=== PATIENT | female | born 1990 | race Two or more races ===

== ENCOUNTER → 2024-07-15 | Outpatient (CLI) | payer MEDICAID, SELFPAY ==
--- NOTE | 2024-07-15 12:37 | XR_ITS ---
Examination: OB Transvaginal ultrasound of the pelvis, complete Technique: Transvaginal sonographic images pelvis performed using amin scale imaging Exam date and time: July 07, 2024 at 1328 hrs. Indications: Irregular menses, early by history, unknown size and dates. Findings: Uterus 9.7 cm pole 1.8 cm corresponds to 8 weeks 2 days gestational age Cardiac motion 173 BPM Right ovary 3.8 cm arterial flow 21 x 22 mm cyst Left ovary 2.2 cm arterial flow Impression: Viable intrauterine gestation 8 weeks 2 days
== END | disposition home or self-care (01) ==
PROVIDERS: PCP Nurse Practitioner Family; Referring Provider Obstetrics & Gynecology; Visit Provider Obstetrics & Gynecology
DX: O09.91 Supervision of high risk pregnancy, unspecified, first trimester (principal); Z3A.08 8 weeks gestation of pregnancy
CPT/HCPCS: 76817

== ENCOUNTER 2024-12-14 17:44 | Emergency (ER) | payer MEDICAID, SELFPAY ==
[2024-12-14 17:45] VITALS: BMI 28.2
--- NOTE | 2024-12-14 17:59 | PC.NURSE ---
TRIAGED PT, RME PCP SAID PT SHOULD GO TO OB INSTEAD OF ER. CALLED REPORT TO OB AND THEY SAID TO BRING HER UP.
== END 2024-12-14 18:01 | disposition admitted as inpatient to this hospital (09) ==
LOC: SERX 18:56
PROVIDERS: Emergency Provider Emergency Medicine
DX: Z53.21 Procedure and treatment not carried out due to patient leaving prior to being seen by health care provider (principal)
CPT/HCPCS: 99282

== ENCOUNTER 2024-12-14 18:17 | Observation (INO) | payer MEDICAID, SELFPAY ==
[2024-12-14] VITALS (31 sets, daily range): BP systolic 117–127; BP diastolic 71–86; PULSE 69–121; RESP 18–99; TEMP 36.5–36.6; O2SAT 97–99; BMI 28.1
--- NOTE | 2024-12-14 18:40 | XR_ITS ---
Examination: Complete OB ultrasound greater than 14 weeks Date and time of exam: December 14, 2024 1908 hours INDICATIONS: labor contractions today Findings: Viable intrauterine single fetus with single amniotic sac presentation cephalic Cardiac motion 143 BPM Placenta posterior grade 2 Umbilical cord insertion seen Amniotic fluid index 9.7 cm spine maternal left Cervix 4.7 cm Ovaries obscured by bowel gas. Composite estimated gestational age based on BPD, head circumference, abdominal circumference, femur length is 31 weeks 1 day Estimated weight 1643 g. Survey of intracranial anatomy, spinal anatomy, abdominal anatomy, four-chamber heart performed with no abnormalities identified. Impression: Viable intrauterine gestation cephalic presentation.
[2024-12-14 19:11] LABS: Collection Type, Urine Clean Catch; RBC,Urine 0 /hpf (0-3)
[2024-12-14] MEDS: BETAMET ACET/BETAMET NA PH (Celestone) 6 MG/ML VIAL 12 MG IM (19:12)
[2024-12-14] MEDS: RINGERS LACTATED 1000 ML 1,000 ML 999 ML IV (19:15)
[2024-12-14 19:23] LABS: Bilirubin,Urine Negative (Negative); Blood,Urine Negative (Negative); Clarity,Urine Clear (Clear/Hazy); Color,Urine Colorless (Lt Yel-Yel); Glucose, Urine Negative (Negative); Ketones,Urine Negative (Negative); Leukocyte Esterase,Urine Negative (Negative); Nitrite,Urine Negative (Negative); PH,Urine 7.0 (5.0-7.0); Protein,Urine Negative (Neg - Trace); Specific Gravity,Urine 1.005 (1.001-1.035); Squamous Epithelial Cell,Urine 2 /hpf (0-5); Urobilinogen,Urine Negative mg/dL (0.0-1.0); WBC,Urine 1 /hpf (0-5)
[2024-12-14 19:34] LABS: Basophils # (Auto) 0.0 Thou/mm3 (0.0-0.2); Basophils % (Auto) 0 % (0-2.5); Eosinophils # (Auto) 0.1 Thou/mm3 (0.0-0.5); Eosinophils % (Auto) 1 % (0-10); Hematocrit 33.0 % (36.0-46.0); Hemoglobin 11.0 g/dL (12.0-16.0); Immature Granulocytes Auto 0.11 Thou/mm3 (0.00-0.00); Lymphocytes # (Auto) 1.6 Thou/mm3 (1.0-4.8); Lymphocytes % (Auto) 17 % (10-50); Mean Corpuscular HGB Conc 33.3 g/dl (31.0-37.0); Mean Corpuscular Hemoglobin 28.1 pg (25.0-35.0); Mean Corpuscular Volume 84 fL (80-100); Monocytes # (Auto) 0.9 Thou/mm3 (0.0-0.8); Monocytes % (Auto) 9 % (0-12); Neutrophils # (Auto) 6.9 Thou/mm3 (1.8-7.7); Neutrophils % (Auto) 72 % (37-80); Nucleated Red Blood Cell # 0.00 Thou/mm3 (0.00-0.00); Nucleated Red Blood Cell % 0 /100 WBC (0); Platelet Count 229 Thou/mm3 (140-440); RDW Standard Deviation 40.9 fL (36.4-46.3); Red Blood Count 3.91 Miln/mm3 (4.00-5.20); White Blood Count 9.7 Thou/mm3 (3.6-11.0)
[2024-12-14 19:45] LABS: Alanine Aminotransferase 8 U/L (10-49); Albumin, Serum 4.0 gm/dL (3.5-5.0); Albumin/Globulin Ratio 1.8 (1.2-2.2); Alkaline Phosphatase 101 U/L (46-116); Anion Gap 10 (7-16); Aspartate Amino Transferase 16 U/L (0-34); BUN/Creatinine Ratio 10 Ratio (12-20); Bilirubin,Total 0.3 mg/dL (0.3-1.2); Blood Urea Nitrogen < 5 mg/dL (9-23); Calcium 9.2 mg/dL (8.3-10.6); Calcium (Corrected) 9.2 mg/dL (8.5-10.1); Carbon Dioxide 20.7 mMol/L (20.0-31.0); Chloride 109 mMol/L (98-107); Creatinine (Component) 0.5 mg/dL (0.6-1.3); Estimated Creatinine Clearance 150.8 mL/min (>60); Globulin 2.2 gm/dL (2.3-3.5); Glucose 92 mg/dL (74-106); Osmolality,Calculated 276 (275-295); Potassium 3.4 mMol/L (3.4-5.1); Sodium 140 mMol/L (136-145); Total Protein 6.2 gm/dL (5.7-8.2); eGFR > 60 See Note
[2024-12-14 19:54] LABS: FFN Specimen Descripton Clr Colrless Aqueous; Fetal Fibronectin Negative (Negative)
[2024-12-14] MEDS: RINGERS LACTATED 1000 ML 1,000 ML 100 ML IV (20:15)
[2024-12-14] MEDS: TERBUTALINE SULF INJ 1 MG/ML VIAL 0.25 MG SC (21:20)
--- NOTE | 2024-12-14 21:52 | PD.ADDPROG ---
Addendum Progress Note Addendum Date of report being addended: 12/14/24 Narrative: The patient is a 34-year-old -0-0-[address] Banks in the clinic. She has a history of x 2. She states her children are age 12 and 9. She presented to triage reporting abdominal pain and is 30 weeks . She was found to be gavin regularly. fibronectin was negative. Urinalysis was negative. The cervix was closed. An ultrasound was ordered and is normal. Patient was given a liter of IV fluids and her contractions spaced. She has been having some cough and is wearing a mask but she states she is also had some diarrhea. No fevers or chills. No loss of fluids or vaginal bleeding. She was reporting some burning on urination but her urinalysis is negative. Patient was given terbutaline and her contractions spaced. The plan will be to give her a second dose of terbutaline. Patient can come back tomorrow for reevaluation. She was given a dose of betamethasone today and the plan will be to repeat at 24 hours.
== END 2024-12-14 23:09 | disposition home or self-care (01) ==
PROVIDERS: Admitting Provider Obstetrics & Gynecology; Visit Provider Obstetrics & Gynecology
DX: O47.03 False labor before 37 completed weeks of gestation, third trimester (principal); O26.893 Other specified pregnancy related conditions, third trimester; R10.9 Unspecified abdominal pain; R30.9 Painful micturition, unspecified; Z3A.30 30 weeks gestation of pregnancy
CPT/HCPCS: 36415; 59899; 76805; 80053; 81001; 82731; 85025; 86850; 86870; 86900; 86901; 87086; 96372; J0702; J3105; J7120

== ENCOUNTER 2024-12-15 18:45 | Outpatient (CLI) | payer MEDICAID, SELFPAY ==
[2024-12-15 18:49] VITALS: BP 118/67; PULSE 70; RESP 20; RESP 98; TEMP 36.5; O2SAT 98; BMI 28.7
[2024-12-15 18:55] VITALS: PULSE 76; O2SAT 98
[2024-12-15 19:00] VITALS: PULSE 75; O2SAT 98
[2024-12-15 19:05] VITALS: PULSE 76; O2SAT 98
[2024-12-15 19:10] VITALS: PULSE 72; O2SAT 99
[2024-12-15 19:15] VITALS: PULSE 72; O2SAT 97
[2024-12-15] MEDS: BETAMET ACET/BETAMET NA PH (Celestone) 6 MG/ML VIAL 12 MG IM (19:42)
== END 2024-12-15 19:50 | disposition home or self-care (01) ==
LOC: S4SX 18:54 → S4S1 19:18 → S4SX 19:18
PROVIDERS: Referring Provider Specialist; Visit Provider Specialist
DX: Z34.90 Encounter for supervision of normal pregnancy, unspecified, unspecified trimester (principal); Z36.9 Encounter for antenatal screening, unspecified; Z3A.00 Weeks of gestation of pregnancy not specified
CPT/HCPCS: 59025; 96372; J0702

== ENCOUNTER 2024-12-16 09:52 | Outpatient (AMB) | payer MEDICAID, SELFPAY ==
--- NOTE | 2024-12-16 10:22 | OBCLNT_ITS ---
Vital Signs 12/16/24 10:23 Height 1.57 m Height Method Stated Weight 73.028 kg Weight Measurement Method Standing Scale BMI 29.4 BP 114/71 Blood Pressure Source Automatic Cuff Blood Pressure Location Right Upper Arm Position Sitting Respiration 17 Pulse 78 Pulse Source Monitor Temp 97.8 F Temp Source Temporal Artery Scan Pulse Oximetry (%) 98 Oxygen Delivery Method Room Air Allergies/Home Meds Allergies & Medications Allergies No Known Allergies Allergy (Verified 12/16/24 10:24) Medication Reconciliation vitamin no.45-iron-FA 28 mg iron-1 mg chewable tablet 1 tab PO QDAY 12/15/24 [History Confirmed 12/16/24] Intake Visit Data Collection New Patient or Established: New Patient (never been to [facility]) Reason for Visit:: OB TRANSFER Seen by Clinical Staff ONLY (RN/MA): No Band Manager Required: No Do You Feel Safe at Home: Yes Authorities Contacted: N/A PCP or OBGYN visit in last 3 months: No Hx Now: Yes Are you currently on any form of Control: No Last menstrual period: 05/06/24 Pain Present Currently: No Pain Scale Used: Florentino-Shanks/Numerical Pain scale:: 0 Smoking Status Smoking Status: Never smoker Questionnaires Covid-19 Vaccine Questionnaire Has patient been vacinated for Covid-19 Have you been vacinated for Covid-19: No PHQ-9 PHQ-2 Over the last 2 weeks, how often have you been bothered by any of the following problems? 1. Little interest or pleasure in doing things: not at all 2. Feeling down, depressed, or hopeless: not at all Total score: 0 PHQ-9 3. Trouble falling or staying asleep, or sleeping too much: Not at all 4. Feeling tired or having little energy: Not at all 5. Poor appetite or overeating: Not at all 6. Feeling bad about yourself - or that you are a failure or have let yourself or your family down: Not at all 7. Trouble concentrating on things, such as reading the newspaper or watching television: Not at all 8. Moving or speaking so slowly that other people could have noticed? - Or the opposite - being so fidgety or restless that you have been moving around a lot more than usual: not at all 9. Thoughts that you would be better off or of hurting yourself in some way: Not at all Total score: 0 If you checked off any problems, how difficult have these problems made it for you to do your work, take care of things at home, or get along with other people?: not difficult at all Source: Developed by Drs. Sai Quezada, Sara Aguirre, Jem Beltran and colleagues, with an educational lenard from [employer]. Depression screen completed yes Social History Living Situation History Marital Status: Lives With: Family Housing: House Tobacco History Smoking Status: Never smoker Second Hand Smoke Exposure: No Alcohol History Alcohol Intake: Never Domestic Abuse History Do You Feel Safe at Home: Yes History of Present Illness HPI Narrative - Elaine Rowe is presenting for Transfer of Care from [facility], with a history of 2 previous sections and an estimated due date of February 22, 2025. - Patient is currently 30 weeks and 2 days based on a 0-wyesa-zvl-6-days ultrasound performed on 07-12-2019. 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 History of two previous sections. Patient experienced contractions for 2 days, prompting a hospital visit where cervix was found closed and movement was normal. corticosteroids were administered for lung maturation. - Schedule for February 15, 2025 (39 weeks gestation) - Administer Tdap vaccine at next appoin tment - Perform routine labs including anemia check and thyroid function test - Follow up in 2 weeks - Confirm and communicate date at next appointment Menstrual History Menstrual reliability: definite Flow: normal Menstrual regularity: regular Monthly: Yes Age at menarche: 12 On control pills at conception: No OB History : 3 Para: 2 # of Living Children: 2 Delivery History 1st : Child's name: SHELBY ROWE date: 02/26/12 sex: female Delivery type: weight (lbs): 2721.554 g History of depression before or after : No 2nd : Child's name: RACHEL STOVALL date: 08/14/15 sex: female Delivery type: weight (lbs): 2721.554 g History of depression before or after : No Infection History & Risk Evaluation History of STDs: none HIV risk evaluation: low risk Hepatitis B risk evaluation: low risk Patient or partner has history of Genital Herpes: No Varicella/chicken pox status: unknown Genetic Screening & History Genetic Screening/Teratology Counseling - Includes patient, baby's father, or anyone in either family with: 1. Patient's age 35 years or older as of estimated date of delivery: No 2. Thalassemia (Vietnamese, English, Mediterranean, or Background); MCV less than 80: No 3. Neural Tube Defect (Meningomyelocele, Spina Bifida, or Anencephaly): No 4. Congenital Heart Defect: No 5. Down Syndrome: No 6. Keo-Sachs (Ashkenazi Orthodox, Cajun, Portuguese Tanzanian): No 7. Annette Disease (Ashkenazi Orthodox): No 8. Familial Dysautonomia (Ashkenazi Orthodox): No 9. Sickle Cell Disease or Trait (): No 10. Hemophilia or other blood disorders: No 11. Muscular Dystrophy: No 12. Cystic Fibrosis: No 13. [place]'s Chorea: No 14. Mental Retardation/Autism: No 15. Other inherited genetic or chromosomal disorder: No 16. Maternal Metabolic Disorder (EG,TYPE 1 Diabetes, PKU): No 17. Patient or baby's father had a child with defects not listed above: No 18. Recurrent loss or a stillbirth: No 19. Medications (including supplements, vitamins, herbs or otc drugs)/illicit/recreational drugs/alcohol since last menstrual period: No 20. Any other: No Infection History 1. Live with someone with TB or exposed to TB: No 2. Rash or viral illness since last menstrual period: No 3. Hepatitis B,C: No Other (see comments) Source: [employer] Office Procedures OB Clinic LOC & Office Proc's Nursing/Assessment Patient Status: Established Patient OB Clinic Nursing Assessment: Medication Reconciliation, Update PMH in EMR and Vital Signs OB Clinic Coordination of Care: Complex Care and Chronic Disease 1-5, Consent,records obtained, informed consent, Education Simp Pt/Fam, Results/Orders obtained and Staff clarify orders Special Needs: Heart tones Established Patient Charge Established Patient Point Assignment: 120 Established Patient Point Charge: EP Level 4 (120-155) Assessment & Plan Diagnosis / Problem List (1) Maternal care for low transverse scar from previous delivery: Status: Acute (2) Supervision of high risk , unspecified, third trimester: Status: Acute
[2024-12-16 10:23] VITALS: BP 114/71; PULSE 78; RESP 17; TEMP 36.6; O2SAT 98; BMI 29.4
== END 2024-12-16 10:44 | disposition home or self-care (01) ==
LOC: HODSOBC 09:52
PROVIDERS: Supervising Provider Obstetrics & Gynecology; Visit Provider Obstetrics & Gynecology
DX: O09.293 Supervision of pregnancy with other poor reproductive or obstetric history, third trimester (principal); O34.211 Maternal care for low transverse scar from previous cesarean delivery; Z3A.30 30 weeks gestation of pregnancy
CPT/HCPCS: 99214; G0463

== ENCOUNTER 2024-12-28 11:28 | Outpatient (AMB) | payer MEDICAID, SELFPAY ==
[2024-12-28 11:53] VITALS: BP 115/75; PULSE 85; RESP 16; TEMP 36.5; O2SAT 98; BMI 29.8
--- NOTE | 2024-12-28 11:53 | OBCLNT_ITS ---
Vital Signs 12/28/24 11:53 Height 1.57 m Height Method Stated Weight 73.595 kg Weight Measurement Method Standing Scale BMI 29.8 BP 115/75 Blood Pressure Source Automatic Cuff Blood Pressure Location Left Upper Arm Position Sitting Respiration 16 Pulse 85 Pulse Source Monitor Temp 97.7 F Temp Source Oral Pulse Oximetry (%) 98 Oxygen Delivery Method Room Air Allergies/Home Meds Allergies & Medications Allergies No Known Allergies Allergy (Verified 01/12/25 13:59) Medication Reconciliation vitamins no.45-iron-FA 28 mg iron-1 mg chewable tablet 1 tab PO QDAY 12/15/24 [History Confirmed 01/12/25] omeprazole 40 mg capsule,delayed release 40 mg PO QDAY 30 days #30 caps 12/28/24 [Rx Confirmed 01/12/25] Intake Visit Data Collection New Patient or Established: Established Patient (seen at [facility] within 3 years) Reason for Visit:: CARE Seen by Clinical Staff ONLY (RN/MA): No Physician President Required: No Do You Feel Safe at Home: Yes Authorities Contacted: N/A PCP or OBGYN visit in last 3 months: Yes Hx Now: Yes Are you currently on any form of Control: No Pain Present Currently: No Pain Scale Used: Florentino-Shanks/Numerical Pain scale:: 0 Smoking Status Smoking Status: Never smoker Questionnaires Covid-19 Vaccine Questionnaire Has patient been vacinated for Covid-19 Have you been vacinated for Covid-19: Yes PHQ-9 PHQ-2 Over the last 2 weeks, how often have you been bothered by any of the following problems? 1. Little interest or pleasure in doing things: not at all 2. Feeling down, depressed, or hopeless: not at all Total score: 0 PHQ-9 3. Trouble falling or staying asleep, or sleeping too much: Not at all 4. Feeling tired or having little energy: Not at all 5. Poor appetite or overeating: Not at all 6. Feeling bad about yourself - or that you are a failure or have let yourself or your family down: Not at all 7. Trouble concentrating on things, such as reading the newspaper or watching television: Not at all 8. Moving or speaking so slowly that other people could have noticed? - Or the opposite - being so fidgety or restless that you have been moving around a lot more than usual: not at all 9. Thoughts that you would be better off or of hurting yourself in some way: Not at all Total score: 0 Source: Developed by Drs. Sai Quezada, Sara Aguirre, Jem Beltran and colleagues, with an educational lenard from [employer] 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 History of two previous sections. Patient experienced contractions for 2 days, prompting a hospital visit where cervix was found closed and movement was normal. corticosteroids were administered for lung maturation. - Schedule for February 15, 2025 (39 weeks gestation) - Administer Tdap vaccine at next appoin tment - Perform routine labs including anemia check and thyroid function test - Follow up in 2 weeks - Confirm and communicate date at next appointment 12/28/24 -?-?-?-?-?-?-?-?-?-?-?-?- 32w 0d 73.595 kg 115/75 occasional cephalic 33 155 active - Elaine Barragan is a woman presenting for a visit at 32 weeks' gestation. - She is scheduled for a repeat C-sectio n on February 15. - Patient denies contractions or loss of fluids. - Scheduled for repeat C- section on 02/15 - Order placed for 01/12/25 -?-?-?-?-?-?-?-?-?-?-?-?- 34w 1d 75.863 kg 119/72 occasional cephalic 35 135 active at 34w1d with hx of prior C/S, scheduled for repeat on 02/15, reports intermittent ctx and recent diarrhea after drinking watermelon water; FHR 135, BP WNL. Plan: Hydrate we ll, avoid GI triggers, return in 2w for GBS swab at 36w, continue C/S plan, go to L&D for increased ctx, ROM, or bleeding. MINE Calculator Estimated Delivery Date Method Current WG Current Estimate 02/22/25 Ultrasound #1 35w 6d Other Estimates 02/22/25 LMP (Uncertain) 35w 6d Notes Visit Date: 12/28/24 Last Updated by: Gabe Banks MD - Hemoglobin: 10.8 g/dL - Hemoglobin A1c: 5.6% - TSH: Normal - RPA: Normal Visit Date: 12/16/24 Last Updated by: Gabe Banks MD - , third trimester - History of section - Recent labor Office Procedures OB Clinic LOC & Office Proc's Nursing/Assessment Patient Status: Established Patient OB Clinic Nursing Assessment: Medication Reconciliation, Update PMH in EMR and Vital Signs OB Clinic Coordination of Care: Complex Care and Chronic Disease 1-5, Consent,records obtained, informed consent, Education Simp Pt/Fam, 1 Ins Authorization, Lab and Imaging orders, Results/Orders obtained and Staff clarify orders Special Needs: Heart tones Established Patient Charge Established Patient Point Assignment: 150 Established Patient Point Charge: EP Level 4 (120-155) Assessment & Plan Diagnosis / Problem List (1) Supervision of high risk , unspecified, third trimester: Status: Acute (2) Maternal care for low transverse scar from previous delivery: Status: Acute
== END 2024-12-28 12:05 | disposition home or self-care (01) ==
LOC: HODSOBC 11:28
PROVIDERS: Supervising Provider Obstetrics & Gynecology; Visit Provider Obstetrics & Gynecology
DX: O09.293 Supervision of pregnancy with other poor reproductive or obstetric history, third trimester (principal); O34.211 Maternal care for low transverse scar from previous cesarean delivery; O09.213 Supervision of pregnancy with history of pre-term labor, third trimester; Z3A.32 32 weeks gestation of pregnancy
CPT/HCPCS: 99214; G0463

== ENCOUNTER 2025-01-12 13:52 | Outpatient (AMB) | payer MEDICAID, SELFPAY ==
--- NOTE | 2025-01-12 13:53 | OBCLNT_ITS ---
Vital Signs 01/12/25 13:54 Height 1.57 m Height Method Stated Weight 75.863 kg Weight Measurement Method Standing Scale BMI 30.7 BP 119/72 Blood Pressure Source Automatic Cuff Blood Pressure Location Left Upper Arm Position Sitting Respiration 16 Pulse 76 Pulse Source Monitor Temp 97.8 F Temp Source Oral Pulse Oximetry (%) 98 Oxygen Delivery Method Room Air Allergies/Home Meds Allergies & Medications Allergies No Known Allergies Allergy (Verified 01/12/25 13:59) Medication Reconciliation vitamins no.45-iron-FA 28 mg iron-1 mg chewable tablet 1 tab PO QDAY 12/15/24 [History Confirmed 01/12/25] omeprazole 40 mg capsule,delayed release 40 mg PO QDAY 30 days #30 caps 12/28/24 [Rx Confirmed 01/12/25] Intake Visit Data Collection New Patient or Established: Established Patient (seen at [facility] within 3 years) Reason for Visit:: CARE Seen by Clinical Staff ONLY (RN/MA): No Nurse Quality Required: No Do You Feel Safe at Home: Yes Authorities Contacted: N/A PCP or OBGYN visit in last 3 months: Yes Hx Now: Yes Are you currently on any form of Control: No Pain Present Currently: No Pain Scale Used: Florentino-Shanks/Numerical Pain scale:: 0 Smoking Status Smoking Status: Never smoker Questionnaires Covid-19 Vaccine Questionnaire Has patient been vacinated for Covid-19 Have you been vacinated for Covid-19: Yes PHQ-9 PHQ-2 Over the last 2 weeks, how often have you been bothered by any of the following problems? 1. Little interest or pleasure in doing things: not at all 2. Feeling down, depressed, or hopeless: not at all Total score: 0 PHQ-9 3. Trouble falling or staying asleep, or sleeping too much: Not at all 4. Feeling tired or having little energy: Not at all 5. Poor appetite or overeating: Not at all 6. Feeling bad about yourself - or that you are a failure or have let yourself or your family down: Not at all 7. Trouble concentrating on things, such as reading the newspaper or watching television: Not at all 8. Moving or speaking so slowly that other people could have noticed? - Or the opposite - being so fidgety or restless that you have been moving around a lot more than usual: not at all 9. Thoughts that you would be better off or of hurting yourself in some way: Not at all Total score: 0 Source: Developed by Drs. Sai Quezada, Sara Aguirre, Jem Beltran and colleagues, with an educational lenard from [employer]. 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 History of two previous sections. Patient experienced contractions for 2 days, prompting a hospital visit where cervix was found closed and movement was normal. corticosteroids were administered for lung maturation. - Schedule for February 15, 2025 (39 weeks gestation) - Administer Tdap vaccine at next appoin tment - Perform routine labs including anemia check and thyroid function test - Follow up in 2 weeks - Confirm and communicate date at next appointment 01/12/25 -?-?-?-?-?-?-?-?-?-?-?-?- 34w 1d 75.863 kg 119/72 occasional cephalic 35 135 active at 34w1d with hx of prior C/S, scheduled for repeat on 02/15, reports intermittent ctx and recent diarrhea after drinking watermelon water; FHR 135, BP WNL. Plan: Hydrate we ll, avoid GI triggers, return in 2w for GBS swab at 36w, continue C/S plan, go to L&D for increased ctx, ROM, or bleeding. MINE Calculator Estimated Delivery Date Method Current WG Current Estimate 02/22/25 Ultrasound #1 34w 1d Other Estimates 02/22/25 LMP (Uncertain) 34w 1d Notes Visit Date: 12/16/24 Last Updated by: Gabe Banks MD - , third trimester - History of section - Recent labor Office Procedures OB Clinic LOC & Office Proc's Nursing/Assessment Patient Status: Established Patient OB Clinic Nursing Assessment: Medication Reconciliation, Update PMH in EMR and Vital Signs OB Clinic Coordination of Care: Complex Care and Chronic Disease 1-5, Consent,records obtained, informed consent, Education Simp Pt/Fam, 1 Ins Authorization, Lab and Imaging orders, Results/Orders obtained and Staff clarify orders Special Needs: Heart tones Established Patient Charge Established Patient Point Assignment: 150 Established Patient Point Charge: EP Level 4 (120-155) Assessment & Plan Diagnosis / Problem List (1) Supervision of high risk , unspecified, third trimester: Status: Acute (2) Maternal care for low transverse scar from previous delivery: Status: Acute
[2025-01-12 13:54] VITALS: BP 119/72; PULSE 76; RESP 16; TEMP 36.6; O2SAT 98; BMI 30.7
== END 2025-01-12 14:24 | disposition home or self-care (01) ==
LOC: HODSOBC 13:52
PROVIDERS: Supervising Provider Obstetrics & Gynecology; Visit Provider Obstetrics & Gynecology
DX: O09.293 Supervision of pregnancy with other poor reproductive or obstetric history, third trimester (principal); O34.211 Maternal care for low transverse scar from previous cesarean delivery; O09.213 Supervision of pregnancy with history of pre-term labor, third trimester; Z3A.34 34 weeks gestation of pregnancy
CPT/HCPCS: 99214; G0463

== ENCOUNTER 2025-01-27 11:11 | Outpatient (AMB) | payer MEDICAID, SELFPAY ==
[2025-01-27 11:28] VITALS: BP 111/72; PULSE 76; RESP 16; TEMP 36.2; O2SAT 98; BMI 32.2
--- NOTE | 2025-01-27 11:28 | OBCLNT_ITS ---
Vital Signs 01/27/25 11:28 Height 1.57 m Height Method Stated Weight 79.435 kg Weight Measurement Method Standing Scale BMI 32.2 BP 111/72 Blood Pressure Source Automatic Cuff Blood Pressure Location Left Upper Arm Position Sitting Respiration 16 Pulse 76 Pulse Source Monitor Temp 97.2 F Temp Source Oral Pulse Oximetry (%) 98 Oxygen Delivery Method Room Air Allergies/Home Meds Allergies & Medications Allergies No Known Allergies Allergy (Verified 03/02/25 14:02) Medication Reconciliation vitamins no.45-iron-FA 28 mg iron-1 mg chewable tablet 1 tab PO QDAY 12/15/24 [History Confirmed 03/02/25] omeprazole 40 mg capsule,delayed release 40 mg PO QDAY 30 days #30 caps 12/28/24 [Rx Confirmed 03/02/25] acetaminophen 325 mg tablet 650 mg (2 x 325 mg) PO Q6HR PRN Patient rated pain of 3 #30 tabs 02/18/25 [Rx Confirmed 03/02/25] docusate sodium 100 mg capsule 100 mg PO QDAY #60 caps 02/18/25 [Rx Confirmed 03/02/25] furosemide 40 mg tablet 40 mg PO BID #6 tabs 02/18/25 [Rx Confirmed 03/02/25] hydrocodone 5 mg-acetaminophen 325 mg tablet 2 tab PO Q6HR PRN Patient rated pain 9 to 10 #20 tabs 02/18/25 [Rx Confirmed 03/02/25] ibuprofen 400 mg tablet 800 mg (2 x 400 mg) PO Q8HR PRN Pain Scale 4-6 (Moderate #6 tabs 02/18/25 [Rx Confirmed 03/02/25] labetalol 100 mg tablet 200 mg (2 x 100 mg) PO Q8HR #60 tabs 02/18/25 [Rx Confirmed 03/02/25] clindamycin HCl 300 mg capsule (Cleocin HCl) 300 mg PO TID 7 days #21 caps 03/02/25 [Rx] clindamycin phosphate 1 % topical gel 1 applic topical QHS 7 days #60 grams 03/02/25 [Rx] Intake Visit Data Collection New Patient or Established: Established Patient (seen at [facility] within 3 years) Reason for Visit:: OBC Seen by Clinical Staff ONLY (RN/MA): No Anesthesiology Technologist Required: No Do You Feel Safe at Home: Yes Authorities Contacted: N/A PCP or OBGYN visit in last 3 months: Yes Date of Last PCP or OBGYN visit: 01/12/25 Hx Now: Yes Pain Present Currently: No Pain Scale Used: Florentino-Shanks/Numerical Pain scale:: 0 Smoking Status Smoking Status: Never smoker Questionnaires Covid-19 Vaccine Questionnaire Has patient been vacinated for Covid-19 Have you been vacinated for Covid-19: Yes PHQ-9 PHQ-2 Over the last 2 weeks, how often have you been bothered by any of the following problems? 1. Little interest or pleasure in doing things: not at all 2. Feeling down, depressed, or hopeless: not at all Total score: 0 PHQ-9 3. Trouble falling or staying asleep, or sleeping too much: Not at all 4. Feeling tired or having little energy: Not at all 5. Poor appetite or overeating: Not at all 6. Feeling bad about yourself - or that you are a failure or have let yourself or your family down: Not at all 7. Trouble concentrating on things, such as reading the newspaper or watching television: Not at all 8. Moving or speaking so slowly that other people could have noticed? - Or the opposite - being so fidgety or restless that you have been moving around a lot more than usual: not at all 9. Thoughts that you would be better off or of hurting yourself in some way: Not at all Total score: 0 If you checked off any problems, how difficult have these problems made it for you to do your work, take care of things at home, or get along with other people?: not difficult at all Source: Developed by Drs. Sai Quezada, Sara Aguirre, Jem Beltran and colleagues, with an educational lenard from [employer]. 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 History of two previous sections. Patient experienced contractions for 2 days, prompting a hospital visit where cervix was found closed and movement was normal. corticosteroids were administered for lung maturation. - Schedule for February 15, 2025 (39 weeks gestation) - Administer Tdap vaccine at next appoin tment - Perform routine labs including anemia check and thyroid function test - Follow up in 2 weeks - Confirm and communicate date at next appointment 12/28/24 -?-?-?-?-?-?-?-?-?-?-?-?- 32w 0d 73.595 kg 115/75 occasional cephalic 33 155 active - Elaine Barragan is a woman presenting for a visit at 32 weeks' gestation. - She is scheduled for a repeat C-sectio n on February 15. - Patient denies contractions or loss of fluids. - Scheduled for repeat C- section on 02/15 - Order placed for 01/12/25 -?-?-?-?-?-?-?-?-?-?-?-?- 34w 1d 75.863 kg 119/72 occasional cephalic 35 135 active at 34w1d with hx of prior C/S, scheduled for repeat on 02/15, reports intermittent ctx and recent diarrhea after drinking watermelon water; FHR 135, BP WNL. Plan: Hydrate we ll, avoid GI triggers, return in 2w for GBS swab at 36w, continue C/S plan, go to L&D for increased ctx, ROM, or bleeding. 01/27/25 -?-?-?-?-?-?-?-?-?-?-?-?- 36w 2d 79.435 kg 111/72 occasional cephalic 36 135 active - Patient reports: - Shortness of breath - Lightheadedness - Dizziness (described as a lot of di zziness ) - Swollen feet, with left side worse t alejandre right - Patient has a history of preeclampsia in her previous - Scheduled for repeat on - Denies current diarrhea (previously reported issue has improved) Plan - Send patient to hospital for preeclamp maris workup - Hospital to perform lab work and cycle blood pressures - Patient to go to 4th floor of hospital through main entrance - Hospital to perform labs and NST (Non- Stress Test) - Follow up appointment in one week - Perform Group B Streptococcus (GBS) cu lture swab - Continue with scheduled repeat C-secti on on February 15 02/01/25 -?-?-?-?-?-?-?-?-?-?-?-?- 37w 0d 78.585 kg 138/80 occasional cephalic 37 155 active Patient has a history of prior delivery. Patient reports some contractions yester day that resolved. No leakage of fluid or vaginal bleeding reported. Reports good movement. Denies LUONG, VC, and epigastric pain. - Follow-up appointment scheduled in 1 week (last appointment before delivery) - section scheduled for February 16 at 12:30 PM - Patient to check in at 10:00 AM on the day of surgery - Continue monitoring blood pressure; if it reaches 140/90 or higher, earlier delivery may be considered - Patient instructed to seek medical att ention if contractions last more than one hour, or if there is leaking or bleeding 02/13/25 -?-?-?-?-?-?-?-?-?-?-?-?- 38w 5d 78.982 kg 137/82 occasional cephalic 39 145 active Patient has a history of prior delivery and is scheduled for repeat section. No contractions, LOF, VB and reports goo d FM. Denies LUONG, VC, and epigastric pain. - She reports no current issues or compl ications during this . - She denies plans for tubal ligation at the time of secti on. - Repeat scheduled for May 19, 2024 at 12:30 PM - Patient to check in at 10:00 AM on the day of surgery - NPO (nothing by mouth) after midnight before the procedure - Ultrasound and monitoring to be performed on 4th floor of the hospital prior to - No tubal ligation to be performed diliam santos MINE Calculator Estimated Delivery Date Method Current WG Current Estimate 02/22/25 Ultrasound #1 41w 3d Other Estimates 02/22/25 LMP (Uncertain) 41w 3d Notes Visit Date: 12/28/24 Last Updated by: Gabe Banks MD - Hemoglobin: 10.8 g/dL - Hemoglobin A1c: 5.6% - TSH: Normal - RPA: Normal Visit Date: 12/16/24 Last Updated by: Gabe Banks MD - , third trimester - History of section - Recent labor Assessment & Plan Diagnosis / Problem List (1) care following delivery: Status: Acute (2) Supervision of high risk , unspecified, third trimester: Status: Acute Plan Problem List - , third trimester - History of preeclampsia - Shortness of breath - Dizziness - Edema of lower limb Assessment 36-year-old at 36 weeks and 2 days gestation presenting with symptoms concerning for preeclampsia, including shortness of breath, lightheadedness, dizziness, and significant lower extremity edema, worse on the left side. Patient has a history of preeclampsia in previous . Current blood pressure is 111/72. heart rate noted to be 135 bpm, which is within normal range. Patient is scheduled for repeat section on February 15. Group B streptococcus screening swab collected at this visit. Plan - Send patient to hospital for preeclampsia workup - Hospital to perform lab work and cycle blood pressures - Patient to go to 4th floor of hospital through main entrance - Hospital to perform labs and NST (Non-Stress Test) - Follow up appointment in one week - Perform Group B Streptococcus (GBS) culture swab - Continue with scheduled repeat on February 15 1. Progress Reviewed gestational age, growth, and heart rate. Planned frequent visits (every 2 weeks until 36 weeks, then weekly). 2. Instructed patient to monitor movements and report decreases immediately. 3. Testing Counseled on routine third-trimester labs per guidelines. Discussed potential need for ultrasound or monitoring based on risk factors. 4. Preeclampsia Precaution Educated on preeclampsia signs: severe headache, vision changes, right upper quadrant pain, sudden swelling. Advised urgent reporting of symptoms and discussed blood pressure monitoring if high risk. 5. Labor Precautions Reviewed labor signs: regular contractions, pelvic pressure, back pain, bleeding, or fluid leakage. Instructed to seek immediate care for these symptoms. 6. Lifestyle and Delivery Preparation Reinforced vitamins, nutrition, and safe activity. Discussed plan, pain management, and . Advised on labor preparation (e.g., hospital bag) and expectations. 7. Psychosocial Support Assessed emotional well-being and offered resources for mental health or parenting support.
== END 2025-01-27 11:36 | disposition home or self-care (01) ==
LOC: HODSOBC 11:11
PROVIDERS: Supervising Provider Obstetrics & Gynecology; Visit Provider Obstetrics & Gynecology
DX: O09.293 Supervision of pregnancy with other poor reproductive or obstetric history, third trimester (principal); Z3A.36 36 weeks gestation of pregnancy; O34.219 Maternal care for unspecified type scar from previous cesarean delivery; O12.03 Gestational edema, third trimester; O99.891 Other specified diseases and conditions complicating pregnancy; R06.02 Shortness of breath; R42 Dizziness and giddiness; Z87.59 Personal history of other complications of pregnancy, childbirth and the puerperium; Z36.85 Encounter for antenatal screening for Streptococcus B
CPT/HCPCS: 99213; G0463

== ENCOUNTER 2025-01-27 11:56 | Outpatient (CLI) | payer MEDICAID, SELFPAY ==
[2025-01-27] VITALS (27 sets, daily range): BP systolic 108–132; BP diastolic 59–82; PULSE 56–156; RESP 17–99; TEMP 36.7; O2SAT 83–99; BMI 30.9
[2025-01-27 13:06] LABS: Collection Type, Urine Clean Catch
[2025-01-27 13:09] LABS: Basophils # (Auto) 0.0 Thou/mm3 (0.0-0.2); Basophils % (Auto) 0 % (0-2.5); Eosinophils # (Auto) 0.1 Thou/mm3 (0.0-0.5); Eosinophils % (Auto) 1 % (0-10); Hematocrit 29.5 % (36.0-46.0); Hemoglobin 9.4 g/dL (12.0-16.0); Immature Granulocytes Auto 0.09 Thou/mm3 (0.00-0.00); Lymphocytes # (Auto) 1.7 Thou/mm3 (1.0-4.8); Lymphocytes % (Auto) 18 % (10-50); Mean Corpuscular HGB Conc 31.9 g/dl (31.0-37.0); Mean Corpuscular Hemoglobin 25.8 pg (25.0-35.0); Mean Corpuscular Volume 81 fL (80-100); Monocytes # (Auto) 0.7 Thou/mm3 (0.0-0.8); Monocytes % (Auto) 7 % (0-12); Neutrophils # (Auto) 6.9 Thou/mm3 (1.8-7.7); Neutrophils % (Auto) 73 % (37-80); Nucleated Red Blood Cell # 0.00 Thou/mm3 (0.00-0.00); Nucleated Red Blood Cell % 0 /100 WBC (0); Platelet Count 205 Thou/mm3 (140-440); RDW Standard Deviation 40.1 fL (36.4-46.3); Red Blood Count 3.65 Miln/mm3 (4.00-5.20); White Blood Count 9.5 Thou/mm3 (3.6-11.0)
[2025-01-27 13:15] LABS: Bilirubin,Urine Negative (Negative); Blood,Urine Negative (Negative); Clarity,Urine Turbid (Clear/Hazy); Color,Urine Lt-Yellow (Lt Yel-Yel); Glucose, Urine Negative (Negative); Ketones,Urine Negative (Negative); Leukocyte Esterase,Urine Negative (Negative); Nitrite,Urine Negative (Negative); PH,Urine 7.0 (5.0-7.0); Protein,Urine Negative (Neg - Trace); RBC,Urine 1 /hpf (0-3); Specific Gravity,Urine 1.019 (1.001-1.035); Squamous Epithelial Cell,Urine 21 /hpf (0-5); Urobilinogen,Urine Negative mg/dL (0.0-1.0); WBC,Urine 1 /hpf (0-5)
[2025-01-27 13:28] LABS: Alanine Aminotransferase 15 U/L (10-49); Albumin, Serum 3.4 gm/dL (3.5-5.0); Albumin/Globulin Ratio 1.8 (1.2-2.2); Alkaline Phosphatase 141 U/L (46-116); Anion Gap 10 (7-16); Aspartate Amino Transferase 19 U/L (0-34); BUN/Creatinine Ratio 10 Ratio (12-20); Bilirubin,Total 0.3 mg/dL (0.3-1.2); Blood Urea Nitrogen < 5 mg/dL (9-23); Calcium 8.5 mg/dL (8.3-10.6); Calcium (Corrected) 9.0 mg/dL (8.5-10.1); Carbon Dioxide 22.6 mMol/L (20.0-31.0); Chloride 106 mMol/L (98-107); Creatinine (Component) 0.5 mg/dL (0.6-1.3); Estimated Creatinine Clearance 158.2 mL/min (>60); Globulin 1.9 gm/dL (2.3-3.5); Glucose 93 mg/dL (74-106); LDH (Lactate Dehydrogenase) 194 U/L (120-246); Osmolality,Calculated 274 (275-295); Potassium 4.2 mMol/L (3.4-5.1); Sodium 139 mMol/L (136-145); Total Protein 5.3 gm/dL (5.7-8.2); Uric Acid 4.2 mg/dL (3.1-7.8); eGFR > 60 See Note
[2025-01-27 13:30] LABS: Fibrinogen 494 mg/dL (175-375); INR 0.9 (0.9-1.3); Partial Thromboplastin Time 24.9 Seconds (22.0-36.0); Prothrombin Time 10.1 Seconds (9.0-12.2)
[2025-01-27 13:58] LABS: Creatinine,Random Urine 108 mg/dL (30-125); Protein Total, Random Urine 25 mg/dL (1-14)
== END 2025-01-27 14:09 | disposition home or self-care (01) ==
LOC: S4S1 11:56 → S4SX 11:57
PROVIDERS: Referring Provider Obstetrics & Gynecology; Visit Provider Obstetrics & Gynecology
DX: Z34.83 Encounter for supervision of other normal pregnancy, third trimester (principal); Z36.89 Encounter for other specified antenatal screening; Z3A.36 36 weeks gestation of pregnancy
CPT/HCPCS: 36415; 80053; 81001; 82570; 83615; 84156; 84550; 85025; 85384; 85610; 85730

== ENCOUNTER 2025-02-01 09:52 | Outpatient (AMB) | payer MEDICAID, SELFPAY ==
[2025-02-01 10:06] VITALS: BP 138/80; PULSE 84; RESP 16; TEMP 36.2; O2SAT 98; BMI 31.8
--- NOTE | 2025-02-01 10:06 | OBCLNT_ITS ---
Vital Signs 02/01/25 10:06 Height 1.57 m Height Method Stated Weight 78.585 kg Weight Measurement Method Standing Scale BMI 31.8 BP 138/80 H Blood Pressure Source Automatic Cuff Blood Pressure Location Left Upper Arm Position Sitting Respiration 16 Pulse 84 Pulse Source Monitor Temp 97.2 F Temp Source Oral Pulse Oximetry (%) 98 Oxygen Delivery Method Room Air Allergies/Home Meds Allergies & Medications Allergies No Known Allergies Allergy (Verified 02/01/25 10:07) Medication Reconciliation vitamins no.45-iron-FA 28 mg iron-1 mg chewable tablet 1 tab PO QDAY 12/15/24 [History Confirmed 02/01/25] omeprazole 40 mg capsule,delayed release 40 mg PO QDAY 30 days #30 caps 12/28/24 [Rx Confirmed 02/01/25] Intake Visit Data Collection New Patient or Established: Established Patient (seen at [facility] within 3 years) Reason for Visit:: OBC Seen by Clinical Staff ONLY (RN/MA): No 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 1. Little interest or pleasure in doing things: not at all 2. Feeling down, depressed, or hopeless: not at all Total score: 0 PHQ-9 3. Trouble falling or staying asleep, or sleeping too much: Not at all 4. Feeling tired or having little energy: Not at all 5. Poor appetite or overeating: Not at all 6. Feeling bad about yourself - or that you are a failure or have let yourself or your family down: Not at all 7. Trouble concentrating on things, such as reading the newspaper or watching t elevision: Not at all 8. Moving or speaking so slowly that other people could have noticed? - Or the opposite - being so fidgety or restless that you have been moving around a lot more than usual: not at all 9. Thoughts that you would be better off or of hurting yourself in some way: Not at all Total score: 0 If you checked off any problems, how difficult have these problems made it for you to do your work, take care of things at home, or get along with other people?: not difficult at all Source: Developed by Drs. Sai Quezada, Sara Aguirre, Jem Beltran and colleagues, with an educational lenard from [employer]. 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 History of two previous sections. Patient experienced contractions for 2 days, prompting a hospital visit where cervix was found closed and movement was normal. corticosteroids were administered for lung maturation. - Schedule for February 15, 2025 (39 weeks gestation) - Administer Tdap vaccine at next appoin tment - Perform routine labs including anemia check and thyroid function test - Follow up in 2 weeks - Confirm and communicate date at next appointment 12/28/24 -?-?-?-?-?-?-?-?-?-?-?-?- 32w 0d 73.595 kg 115/75 occasional cephalic 33 155 active - Elaine Barragan is a woman presenting for a visit at 32 weeks' gestation. - She is scheduled for a repeat C-sectio n on February 15. - Patient denies contractions or loss of fluids. - Scheduled for repeat C- section on 02/15 - Order placed for 01/12/25 -?-?-?-?-?-?-?-?-?-?-?-?- 34w 1d 75.863 kg 119/72 occasional cephalic 35 135 active at 34w1d with hx of prior C/S, scheduled for repeat on 02/15, reports intermittent ctx and recent diarrhea after drinking watermelon water; FHR 135, BP WNL. Plan: Hydrate we ll, avoid GI triggers, return in 2w for GBS swab at 36w, continue C/S plan, go to L&D for increased ctx, ROM, or bleeding. 02/01/25 -?-?-?-?-?-?-?-?-?-?-?-?- 37w 0d 78.585 kg 138/80 occasional cephalic 37 155 active Patient has a history of prior delivery. Patient reports some contractions yester day that resolved. No leakage of fluid or vaginal bleeding reported. Reports good movement. Denies LUONG, VC, and epigastric pain. - Follow-up appointment scheduled in 1 week (last appointment before delivery) - section scheduled for February 16 at 12:30 PM - Patient to check in at 10:00 AM on the day of surgery - Continue monitoring blood pressure; if it reaches 140/90 or higher, earlier delivery may be considered - Patient instructed to seek medical att ention if contractions last more than one hour, or if there is leaking or bleeding MINE Calculator Estimated Delivery Date Method Current WG Current Estimate 02/22/25 Ultrasound #1 37w 4d Other Estimates 02/22/25 LMP (Uncertain) 37w 4d Notes Visit Date: 12/28/24 Last Updated by: Gabe Banks MD - Hemoglobin: 10.8 g/dL - Hemoglobin A1c: 5.6% - TSH: Normal - RPA: Normal Visit Date: 12/16/24 Last Updated by: Gabe Banks MD - , third trimester - History of section - Recent labor Office Procedures OB Clinic LOC & Office Proc's Nursing/Assessment Patient Status: Established Patient OB Clinic Nursing Assessment: Medication Reconciliation, Update PMH in EMR and Vital Signs OB Clinic Coordination of Care: Education Complex Pt/Fam, Consent,records obtained, informed consent, Lab and Imaging orders and Staff clarify orders Special Needs: Heart tones Established Patient Charge Established Patient Point Assignment: 110 Established Patient Point Charge: EP Level 3 (80-115) Assessment & Plan Diagnosis / Problem List (1) Supervision of high risk , unspecified, third trimester: Status: Acute (2) Maternal care for low transverse scar from previous delivery: Status: Acute Plan Problem List - , 37 weeks gestation - Elevated blood pressure Assessment 2 para 1 at 37 weeks and 0 days gestation, presenting for routine visit. Patient previously reported shortness of breath, lightheadedness, and dizziness, which prompted evaluation for preeclampsia; workup was negative. Current blood pressure is 138/80, which is elevated but below the threshold for immediate intervention (140/90). Patient reports experiencing brief contractions yesterday that resolved spontaneously. heart rate is 155 bpm, within normal limits. Patient is scheduled for repeat section on February 16 at 12:30 PM. Plan - Follow-up appointment scheduled in 1 week (last appointment before delivery) - section scheduled for February 16 at 12:30 PM - Patient to check in at 10:00 AM on the day of surgery - Continue monitoring blood pressure; if it reaches 140/90 or higher, earlier delivery may be considered - Patient instructed to seek medical attention if contractions last more than one hour, or if there is leaking or bleeding 1. Progress Reviewed gestational age, growth, and heart rate. Planned frequent visits (every 2 weeks until 36 weeks, then weekly). 2. Instructed patient to monitor movements and report decreases immediately. 3. Testing Counseled on routine third-trimester labs per guidelines. Discussed potential need for ultrasound or monitoring based on risk factors. 4. Preeclampsia Precaution Educated on preeclampsia signs: severe headache, vision changes, right upper quadrant pain, sudden swelling. Advised urgent reporting of symptoms and discussed blood pressure monitoring if high risk. 5. Labor Precautions Reviewed labor signs: regular contractions, pelvic pressure, back pain, bleeding, or fluid leakage. Instructed to seek immediate care for these symptoms. 6. Lifestyle and Delivery Preparation Reinforced vitamins, nutrition, and safe activity. Discussed plan, pain management, and . Advised on labor preparation (e.g., hospital bag) and expectations. 7. Psychosocial Support Assessed emotional well-being and offered resources for mental health or parenting support.
== END 2025-02-01 10:51 | disposition home or self-care (01) ==
PROVIDERS: Supervising Provider Obstetrics & Gynecology; Visit Provider Obstetrics & Gynecology
DX: O09.293 Supervision of pregnancy with other poor reproductive or obstetric history, third trimester (principal); O34.211 Maternal care for low transverse scar from previous cesarean delivery; O09.893 Supervision of other high risk pregnancies, third trimester; O99.891 Other specified diseases and conditions complicating pregnancy; R03.0 Elevated blood-pressure reading, without diagnosis of hypertension; Z3A.37 37 weeks gestation of pregnancy
CPT/HCPCS: 99213; G0463

== ENCOUNTER 2025-02-13 09:24 | Outpatient (AMB) | payer MEDICAID, SELFPAY ==
[2025-02-13 09:38] VITALS: BP 137/82; PULSE 90; RESP 16; TEMP 36.6; O2SAT 98; BMI 32.0
--- NOTE | 2025-02-13 09:38 | OBCLNT_ITS ---
Vital Signs 02/13/25 09:38 Height 1.57 m Height Method Stated Weight 78.982 kg Weight Measurement Method Standing Scale BMI 32.0 BP 137/82 H Blood Pressure Source Automatic Cuff Blood Pressure Location Left Upper Arm Position Sitting Respiration 16 Pulse 90 Pulse Source Monitor Temp 97.8 F Temp Source Oral Pulse Oximetry (%) 98 Oxygen Delivery Method Room Air Allergies/Home Meds Allergies & Medications Allergies No Known Allergies Allergy (Verified 02/13/25 09:38) Medication Reconciliation vitamins no.45-iron-FA 28 mg iron-1 mg chewable tablet 1 tab PO QDAY 12/15/24 [History Confirmed 02/13/25] omeprazole 40 mg capsule,delayed release 40 mg PO QDAY 30 days #30 caps 12/28/24 [Rx Confirmed 02/13/25] Intake Visit Data Collection New Patient or Established: Established Patient (seen at [facility] within 3 years) Reason for Visit:: OBC Seen by Clinical Staff ONLY (RN/MA): No Burn Nurse Required: No Do You Feel Safe at Home: Yes Authorities Contacted: N/A PCP or OBGYN visit in last 3 months: Yes Date of Last PCP or OBGYN visit: 02/01/25 Hx Now: Yes Are you currently on any form of Control: No Pain Present Currently: No Pain Scale Used: Florentino-Shanks/Numerical Pain scale:: 0 Smoking Status Smoking Status: Never smoker Questionnaires Covid-19 Vaccine Questionnaire Has patient been vacinated for Covid-19 Have you been vacinated for Covid-19: Yes PHQ-9 PHQ-2 Over the last 2 weeks, how often have you been bothered by any of the following problems? 1. Little interest or pleasure in doing things: not at all 2. Feeling down, depressed, or hopeless: not at all Total score: 0 PHQ-9 3. Trouble falling or staying asleep, or sleeping too much: Not at all 4. Feeling tired or having little energy: Not at all 5. Poor appetite or overeating: Not at all 6. Feeling bad about yourself - or that you are a failure or have let yourself or your family down: Not at all 7. Trouble concentrating on things, such as reading the newspaper or watching t elevision: Not at all 8. Moving or speaking so slowly that other people could have noticed? - Or the opposite - being so fidgety or restless that you have been moving around a lot more than usual: not at all 9. Thoughts that you would be better off or of hurting yourself in some way: Not at all Total score: 0 If you checked off any problems, how difficult have these problems made it for you to do your work, take care of things at home, or get along with other people?: not difficult at all Source: Developed by Drs. Sai Quezada, Sara Aguirre, Jem Beltran and colleagues, with an educational lenard from [employer]. 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 History of two previous sections. Patient experienced contractions for 2 days, prompting a hospital visit where cervix was found closed and movement was normal. corticosteroids were administered for lung maturation. - Schedule for February 15, 2025 (39 weeks gestation) - Administer Tdap vaccine at next appoin tment - Perform routine labs including anemia check and thyroid function test - Follow up in 2 weeks - Confirm and communicate date at next appointment 12/28/24 -?-?-?-?-?-?-?-?-?-?-?-?- 32w 0d 73.595 kg 115/75 occasional cephalic 33 155 active - Elaine Barragan is a woman presenting for a visit at 32 weeks' gestation. - She is scheduled for a repeat C-sectio n on February 15. - Patient denies contractions or loss of fluids. - Scheduled for repeat C- section on 02/15 - Order placed for 01/12/25 -?-?-?-?-?-?-?-?-?-?-?-?- 34w 1d 75.863 kg 119/72 occasional cephalic 35 135 active at 34w1d with hx of prior C/S, scheduled for repeat on 02/15, reports intermittent ctx and recent diarrhea after drinking watermelon water; FHR 135, BP WNL. Plan: Hydrate we ll, avoid GI triggers, return in 2w for GBS swab at 36w, continue C/S plan, go to L&D for increased ctx, ROM, or bleeding. 02/01/25 -?-?-?-?-?-?-?-?-?-?-?-?- 37w 0d 78.585 kg 138/80 occasional cephalic 37 155 active Patient has a history of prior delivery. Patient reports some contractions yester day that resolved. No leakage of fluid or vaginal bleeding reported. Reports good movement. Denies LUONG, VC, and epigastric pain. - Follow-up appointment scheduled in 1 week (last appointment before delivery) - section scheduled for February 16 at 12:30 PM - Patient to check in at 10:00 AM on the day of surgery - Continue monitoring blood pressure; if it reaches 140/90 or higher, earlier delivery may be considered - Patient instructed to seek medical att ention if contractions last more than one hour, or if there is leaking or bleeding 02/13/25 -?-?-?-?-?-?-?-?-?-?-?-?- 38w 5d 78.982 kg 137/82 occasional cephalic 39 145 active Patient has a history of prior delivery and is scheduled for repeat section. No contractions, LOF, VB and reports goo d FM. Denies LUONG, VC, and epigastric pain. - She reports no current issues or compl ications during this . - She denies plans for tubal ligation at the time of secti on. - Repeat scheduled for May 19, 2024 at 12:30 PM - Patient to check in at 10:00 AM on the day of surgery - NPO (nothing by mouth) after midnight before the procedure - Ultrasound and monitoring to be performed on 4th floor of the hospital prior to - No tubal ligation to be performed vance graham MINE Calculator Estimated Delivery Date Method Current WG Current Estimate 02/22/25 Ultrasound #1 38w 5d Other Estimates 02/22/25 LMP (Uncertain) 38w 5d Notes Visit Date: 12/28/24 Last Updated by: Gabe Banks MD - Hemoglobin: 10.8 g/dL - Hemoglobin A1c: 5.6% - TSH: Normal - RPA: Normal Visit Date: 12/16/24 Last Updated by: Gabe Banks MD - , third trimester - History of section - Recent labor Office Procedures OBC Clinic LOC & Office Proc's Nursing/Assessment Patient Status: Established Patient OB Clinic Nursing Assessment: Medication Reconciliation, Update PMH in EMR and Vital Signs OB Clinic Coordination of Care: Education Complex Pt/Fam, Consent,records obtained, informed consent, Lab and Imaging orders, Results/Orders obtained and Staff clarify orders Special Needs: Heart tones Established Patient Charge Established Patient Point Assignment: 115 Established Patient Point Charge: EP Level 3 (80-115) Results Urine HCG Urine HCG Negative Last Edit by Elizabeth Lamas MA on 02/13/25 10:11 Assessment & Plan Diagnosis / Problem List (1) Supervision of high risk , unspecified, third trimester: Status: Acute (2) Maternal care for low transverse scar from previous delivery: Status: Acute Plan Problem List - , third trimester - Scheduled repeat section Assessment at 38 weeks and 5 days gestation, scheduled for repeat section on May 19, 2024, at 12:30 PM. heart rate auscultated at 142 bpm, which is within normal range. Patient has had an uncomplicated course with no reported issues such as hypertension. Patient declined tubal ligation during the upcoming section. Plan - Repeat scheduled for May 19, 2024 at 12:30 PM - Patient to check in at 10:00 AM on the day of surgery - NPO (nothing by mouth) after midnight before the procedure - Ultrasound and monitoring to be performed on 4th floor of the hospital prior to - No tubal ligation to be performed during 1. Progress Reviewed gestational age (38 weeks and 5 days), growth, and heart rate (142 bpm - normal). Patient is scheduled for repeat section on May 19, 2024 at 12:30 PM. 2. Instructed patient to monitor movements and report decreases immediately. 3. Testing Ultrasound ordered for assessment and amniotic fluid measurement prior to scheduled section. Patient will go to 4th floor of hospital for ultrasound and monitoring. 4. Preeclampsia Precaution Patient noted to have done well this without blood pressure issues or other complications. 5. Labor Precautions Reviewed labor signs: regular contractions, pelvic pressure, back pain, bleeding, or fluid leakage. Instructed to seek immediate care for these symptoms. 6. Lifestyle and Delivery Preparation Pre-operative instructions provided: NPO after midnight, check-in at 10:00 AM for 12:30 PM section. Pre-operative preparation will include blood tests and surgical site preparation. Confirmed patient is not having tubal ligation. 7. Psychosocial Support Assessed emotional well-being and offered resources for mental health or parenting support.
== END 2025-02-13 10:07 | disposition home or self-care (01) ==
LOC: HODSOBC 09:24
PROVIDERS: Supervising Provider Obstetrics & Gynecology; Visit Provider Obstetrics & Gynecology
DX: O09.293 Supervision of pregnancy with other poor reproductive or obstetric history, third trimester (principal); O34.211 Maternal care for low transverse scar from previous cesarean delivery; Z3A.38 38 weeks gestation of pregnancy
CPT/HCPCS: 99213; G0463

== ENCOUNTER 2025-02-13 10:26 | Observation (INO) | payer MEDICAID, SELFPAY ==
[2025-02-13 10:30] VITALS: BP 133/78; PULSE 64; PULSE 66; PULSE 67; RESP 18; RESP 99; TEMP 36.6; O2SAT 99; BMI 30.9
--- NOTE | 2025-02-13 10:33 | XR_ITS ---
Examination: Biophysical profile, ultrasound Date and time of exam: February 13, 2025, 1055 hours INDICATIONS: Onset decreased movement today Technique: Multiple transabdominal sonographic images of the pelvis abdomen obtained. Attention is directed to the breathing movement, gross body movement, amniotic fluid volume and tone. Findings: 11.6 amniotic fluid index Total biophysical profile is 8 of 8. breathing movement is 2. Gross body movement is 2. tone is 2. Qualitative amniotic fluid volume is 2 Impression: Biophysical profile is 8 of 8.
[2025-02-13 10:35] VITALS: PULSE 69; O2SAT 98
[2025-02-13 10:40] VITALS: PULSE 72; O2SAT 99
[2025-02-13 10:45] VITALS: PULSE 69; O2SAT 98
[2025-02-13 10:50] VITALS: PULSE 64; O2SAT 99
== END 2025-02-13 11:29 | disposition home or self-care (01) ==
PROVIDERS: Admitting Provider Obstetrics & Gynecology; Visit Provider Obstetrics & Gynecology
DX: O36.8130 Decreased fetal movements, third trimester, not applicable or unspecified (principal); Z3A.38 38 weeks gestation of pregnancy
CPT/HCPCS: 59025; 59899; 76819

== ENCOUNTER 2025-02-16 10:08 | Inpatient (IN) | payer MEDICAID, SELFPAY ==
[2025-02-16] VITALS (18 sets, daily range): BP systolic 124–170; BP diastolic 53–103; PULSE 58–104; RESP 12–19; TEMP 36.3–36.6; O2SAT 97–100; BMI 30.6
[2025-02-16 11:21] LABS: Basophils # (Auto) 0.1 Thou/mm3 (0.0-0.2); Basophils % (Auto) 1 % (0-2.5); Eosinophils # (Auto) 0.1 Thou/mm3 (0.0-0.5); Eosinophils % (Auto) 1 % (0-10); Hematocrit 31.4 % (36.0-46.0); Hemoglobin 9.9 g/dL (12.0-16.0); Immature Granulocytes Auto 0.10 Thou/mm3 (0.00-0.00); Lymphocytes # (Auto) 1.8 Thou/mm3 (1.0-4.8); Lymphocytes % (Auto) 21 % (10-50); Mean Corpuscular HGB Conc 31.5 g/dl (31.0-37.0); Mean Corpuscular Hemoglobin 24.1 pg (25.0-35.0); Mean Corpuscular Volume 76 fL (80-100); Monocytes # (Auto) 0.6 Thou/mm3 (0.0-0.8); Monocytes % (Auto) 8 % (0-12); Neutrophils # (Auto) 5.9 Thou/mm3 (1.8-7.7); Neutrophils % (Auto) 69 % (37-80); Nucleated Red Blood Cell # 0.00 Thou/mm3 (0.00-0.00); Nucleated Red Blood Cell % 0 /100 WBC (0); Platelet Count 234 Thou/mm3 (140-440); RDW Standard Deviation 39.8 fL (36.4-46.3); Red Blood Count 4.11 Miln/mm3 (4.00-5.20); White Blood Count 8.5 Thou/mm3 (3.6-11.0)
[2025-02-16 11:53] LABS: INR 0.9 (0.9-1.3); Partial Thromboplastin Time 25.9 Seconds (22.0-36.0); Prothrombin Time 9.5 Seconds (9.0-12.2)
[2025-02-16 11:54] LABS: Alanine Aminotransferase 9 U/L (10-49); Albumin, Serum 3.8 gm/dL (3.5-5.0); Albumin/Globulin Ratio 2.0 (1.2-2.2); Alkaline Phosphatase 208 U/L (46-116); Anion Gap 12 (7-16); Aspartate Amino Transferase 15 U/L (0-34); BUN/Creatinine Ratio 12 Ratio (12-20); Bilirubin,Total 0.4 mg/dL (0.3-1.2); Blood Urea Nitrogen 6 mg/dL (9-23); Calcium 8.8 mg/dL (8.3-10.6); Calcium (Corrected) 9.0 mg/dL (8.5-10.1); Carbon Dioxide 20.5 mMol/L (20.0-31.0); Chloride 107 mMol/L (98-107); Creatinine (Component) 0.5 mg/dL (0.6-1.3); Globulin 1.9 gm/dL (2.3-3.5); Glucose 82 mg/dL (74-106); Osmolality,Calculated 274 (275-295); Potassium 3.7 mMol/L (3.4-5.1); Sodium 139 mMol/L (136-145); Total Protein 5.7 gm/dL (5.7-8.2); Uric Acid 4.9 mg/dL (3.1-7.8); eGFR > 60 See Note
--- NOTE | 2025-02-16 11:59 | ESHP_ITS ---
Documentation for date of: 02/16/25 OB Labor/Induct. HPI History of Present Illness Chief complaint: : 3 Para: 2 Term pregnancies: 2 pregnancies: 0 Living children: 2 History of Abortions: Spontaneous and Elective: 0 History of sections: Yes History of : No MINE: 02/22/25 Gestational Age (weeks): 39 Gestational Age (days): 1 History of present illness: 34-year-old 3 para 2 at 39 weeks and 1 day presents for scheduled repeat low-transverse Patient has no complaints on presentation including contractions, leakage of fluid or vaginal bleeding and reports adequate movements. She received care at the [facility] clinic. Patient had borderline blood pressures that were managed without medications. All her records were reviewed as scanned in Review of Systems Review of Systems Systems Reviewed: All systems reviewed, normal except as documented Past Medical History Surgical History SURGICAL: Positive Section Meds Home Medications and Allergies Home Medications ?Medication ?Instructions ?Recorded ?Confirmed ?Type vitamins no.45-iron-FA 28 1 tab PO QDAY 12/1502/13/25 History mg iron-1 mg chewable tablet Allergies Allergy/AdvReac Type Severity Reaction Status Date / Time No Known Allergies Allergy Verified 02/13/25 11:20 OB Exam Physical Exam Vital signs: Pulse BP 64 159/91 H 02/16/25 10:36 02/16/25 10:36 Constitutional Constitutional: no acute distress Routine HEENT Exam Head: Present normocephalic and atraumatic Eye: Present EOMI and PERRL ENT: Present mucous membranes moist Routine Neck Exam Neck: Present supple and trachea midline Routine Cardiovascular Exam Cardiovascular: Present RRR Routine Abdominal Exam Abdominal: Present soft and normoactive bowel sounds Detailed Labor and Delivery Exam Dilation (cm): 0 Baseline heart rate: 145 monitor accelerations: 15x15 monitor decelerations: None Routine Extremities Exam Extremities: Present full ROM Routine Skin Exam Skin: Present intact, dry and warm Routine Neurological Exam Neurological: Present alert, oriented X3 and CN II-XII intact Routine Psychiatric Exam Psychiatric: Present normal affect and normal thought process OB Results Labs 02/16/25 10:00 02/16/25 10:00 Labs: Short CBC 02/16/25 Range/Units 10:00 WBC 8.5 (3.6-11.0) Thou/mm3 Hgb 9.9 L (12.0-16.0) g/dL Hct 31.4 L (36.0-46.0) % Plt Count 234 (140-440) Thou/mm3 BMP 02/16/25 10:00 Sodium 139 Potassium 3.7 Chloride 107 Carbon Dioxide 20.5 BUN 6 L Creatinine 0.5 L Glucose 82 Calcium 8.8 Liver Function 02/16/25 Range/Units 10:00 Total Bilirubin 0.4 (0.3-1.2) mg/dL AST 15 (0-34) U/L ALT 9 L (10-49) U/L Alkaline Phosphatase 208 H (46-116) U/L Albumin 3.8 (3.5-5.0) gm/dL OB Assessment & Plan Assessment and Plan (1) Supervision of high risk , unspecified, third trimester: Status: Acute Assessment and plan: Admit to inpatient status for repeat low transverse IV access, CBC, type and screen, LR at 125, RPR, COVID-19 test GBS negative Ancef 2 g prior to surgery start Mohan catheter to drainage SCDs for DVT prophylaxis Anesthesia to preop for spinal anesthesia Scheduled for surgery. (2) Maternal care for low transverse scar from previous delivery: Status: Acute
[2025-02-16 12:01] LABS: Syphilis Nonreactive (Nonreactive)
[2025-02-16 12:31] LABS: Fibrinogen 525 mg/dL (175-375)
[2025-02-16] MEDS: ceFAZolin/D5W 2 GM IV 2 GM/100 ML BAG IV (12:54)
[2025-02-16] MEDS: FAMOTIDINE INJ 10 MG/ML VIAL 2 ML 20 MG IV (12:55)
--- NOTE | 2025-02-16 14:07 | ESOP_ITS ---
Operative Note - CALL WORKER PERSON Procedure Date of procedure: 02/16/25 Procedure Performed: Repeat low-transverse section Indication: 34-year-old 3 para 2 with previous x 2 at 39 weeks and 1 day Anesthesia type: Spinal Procedure description: Informed consent was obtained, and the patient was brought to the operating room. Identity was confirmed using two patient identifiers. Spinal anesthesia was administered, and the patient was positioned in the supine position. The abdomen and perineum were prepped and draped in sterile fashion. A Mohan cathet er was inserted for continuous bladder drainage. A surgical timeout was performed. On inspection of the abdominal wall, a thickened ridge was noted in the infraumbilical region just above the Pfannenstiel incision. A Pfannenstiel skin incision was made and carried sharply through the subcutaneous tissue in a controlled fashion until the rectus fascia was identified and incised. The fascial incision was extended bilaterally using Cardona scissors, and the fascia was dissected bluntly off the rectus muscles. The peritoneum was entered bluntly and stretched to allow access to the lower uterine segment. A low transverse uterine incision was made, and the amniotic membranes were ruptured. The fetus, in vertex presentation, was delivered atraumatically. The umbilical cord was clamped and cut, and the infant was handed to the team. The placenta was delivered manually, and the uterus was cleared of clots and membranes. The uterine incision was closed in two layers using 1-0 Monocryl. After closure, bleeding was noted from the left uterine angle, and an O?[place] uterine artery ligation was performed using [id number] 0-Vicryl sutures to achieve hemostasis. The uterus was returned to the peritoneal cavity. Surgicel Snow was placed over the uterus for hemostasis. The peritoneal cavity was inspected and noted to be hemostatic. The rectus fascia was closed using 0 Vicryl in a running fashion. The subcutaneous tissue was reapproximated using 2-0 plain gut, and the skin was closed using surgical johnnie. A sterile dressing was applied. The patient tolerated the procedure well and was transferred to recovery in stable and awake condition. All instrument, sponge, and lap counts were correct ?2. Estimated blood loss (ml): 750 Complications: none Surgical staff Operation Date: 02/16/25 12:45 Case Staff OPERATIONS LIEUTENANT: Michel Tracey RNlockstitch pocket setter: Candido Finnegan Diagnosis Discharge Diagnosis (1) Supervision of high risk , unspecified, third trimester: Status: Acute (2) Maternal care for low transverse scar from previous delivery: Status: Acute Problem List Completed Was Problem List Reviewed/Reconciled?: Yes
--- NOTE | 2025-02-16 14:09 | PD.LDDELS ---
Data (Zuniga) Data Hx Section: Yes : 3 Term: 2 : 0 Livin Abortions: Spontaneous & Theraputic: 0 Delivery Data (Zuniga) Labor Data Induction/Augmentation Agent: None ROM date: 02/16/25 ROM time: 13:35 Amniotic membrane rupture type: Artificial Amniotic fluid description: Clear Delivery Data delivery date: 02/16/25 delivery time: 13:36 Placenta delivery date: 02/16/25 Placenta delivery time: 13:37 Delivered by: Jocelny Delivery nurse: Jenelle Womack nurse: Oxana Wray Telephone Operator Chief at delivery: No Delivery Method Delivery method: Low Transverse Presentation: Vertex Anesthesia Type Anesthesia Type: None Anesthesia type: Spinal Placenta Placenta delivery description: Manual Removal Cord blood sent to lab: Yes cord blood collection: Cord Blood Type Episiotomy Episiotomy description: None Umbilical Cord cord description: 3 Vessels Data (Zuniga) Maxwell Data 's gender: Female weight (gms): 2060 g Weight (pounds): 4 lbs and 8.7 ozs 1 minute: 9 5 minutes: 9
[2025-02-16] MEDS: OXYTOCIN in NS 20 units 20 UNIT/1,000 ML BAG 125 UNIT IV ×2 (15:07→22:28)
[2025-02-16] MEDS: ACETAMINOPHEN IVPB 1,000 MG/100 ML VIAL 250 MG IV (15:58)
--- NOTE | 2025-02-16 22:02 | PC.NURSE ---
Notify MD Banks of pt's BP. MD Banks made new orders.
[2025-02-16] MEDS: LABETALOL 100 MG TABLET 200 MG PO (22:24)
[2025-02-16] MEDS: ONDANSETRON INJ 2 MG/ML INJ 2 ML 4 MG IV (22:28)
[2025-02-17] VITALS (9 sets, daily range): BP systolic 123–146; BP diastolic 73–83; PULSE 61–77; RESP 16–19; TEMP 36.4–36.7; O2SAT 98–99
--- NOTE | 2025-02-17 01:17 | PC.NURSE ---
Notify MD Banks of pt's urine output. As per MD to leave cavazos until the morning.
[2025-02-17 05:48] LABS: Basophils # (Auto) 0.0 Thou/mm3 (0.0-0.2); Basophils % (Auto) 0 % (0-2.5); Eosinophils # (Auto) 0.0 Thou/mm3 (0.0-0.5); Eosinophils % (Auto) 0 % (0-10); Hematocrit 26.5 % (36.0-46.0); Immature Granulocytes Auto 0.16 Thou/mm3 (0.00-0.00); Lymphocytes # (Auto) 1.4 Thou/mm3 (1.0-4.8); Lymphocytes % (Auto) 8 % (10-50); Mean Corpuscular HGB Conc 31.3 g/dl (31.0-37.0); Mean Corpuscular Hemoglobin 24.6 pg (25.0-35.0); Mean Corpuscular Volume 79 fL (80-100); Monocytes # (Auto) 1.0 Thou/mm3 (0.0-0.8); Monocytes % (Auto) 6 % (0-12); Neutrophils # (Auto) 14.5 Thou/mm3 (1.8-7.7); Neutrophils % (Auto) 85 % (37-80); Nucleated Red Blood Cell # 0.00 Thou/mm3 (0.00-0.00); Nucleated Red Blood Cell % 0 /100 WBC (0); Platelet Count 211 Thou/mm3 (140-440); RDW Standard Deviation 41.1 fL (36.4-46.3); Red Blood Count 3.37 Miln/mm3 (4.00-5.20); White Blood Count 17.1 Thou/mm3 (3.6-11.0)
[2025-02-17 05:49] LABS: Hemoglobin 8.3 g/dL (12.0-16.0)
--- NOTE | 2025-02-17 08:38 | PD.LDPPPRG ---
Subjective Subjective Interval history: Delivery type: , currently doing well, patient spiked severe range blood pressures overnight and she is currently on labetalol 200 every 8 hours with adequate control of blood pressures. Patient doing well this morning. No acute complaints. Ambulating, tolerating p.o. and voiding without difficulty. HTN/Pre-Eclampsia screen: No chest pain, shortness of breath, headache, visual changes, epigastric or right upper quadrant pain. Breast-feeding, lochia diminishing. Bowel: Flatus+/ BM+ Exam Vital Signs Temp Pulse Resp BP Pulse Ox O2 Del Method 97.6 F 73 18 144/77 H 98 Room Air 02/17/25 08:00 02/17/25 08:00 02/17/25 08:00 02/17/25 08:00 02/17/25 08:00 02/17/25 08:00 Constitutional Constitutional: no acute distress Routine HEENT Exam Head: Present normocephalic and atraumatic Eye: Present EOMI and PERRL ENT: Present mucous membranes moist Routine Neck Exam Neck: Present supple and trachea midline Routine Respiratory Exam Respiratory: Present chest non-tender, lungs clear, normal breath sounds and no resp distress Routine Cardiovascular Exam Cardiovascular: Present RRR Routine Abdominal Exam Abdominal: Present soft and normoactive bowel sounds Routine Extremities Exam Extremities: Present full ROM Routine Skin Exam Skin: Present intact, dry and warm Routine Neurological Exam Neurological: Present alert, oriented X3 and CN II-XII intact Routine Psychiatric Exam Psychiatric: Present normal affect and normal thought process Objective Labs 02/17/25 04:55 02/16/25 10:00 Labs: Laboratory Results - last 24 hr 02/16/25 02/17/25 10:00 04:55 WBC 8.5 17.1 H D RBC 4.11 3.37 L Hgb 9.9 L 8.3 L Hct 31.4 L 26.5 L MCV 76 L 79 L MCH 24.1 L 24.6 L MCHC 31.5 31.3 RDW Std Deviation 39.8 41.1 Plt Count 234 211 Neut % (Auto) 69 85 H Lymph % (Auto) 21 8 L [place] % (Auto) 8 6 Eos % (Auto) 1 0 Baso % (Auto) 1 0 Neut # (Auto) 5.9 14.5 H Lymph # (Auto) 1.8 1.4 [place] # (Auto) 0.6 1.0 H Eos # (Auto) 0.1 0.0 Baso # (Auto) 0.1 0.0 Immature Gran # (Auto) 0.10 H 0.16 H Absolute Nucleated RBC 0.00 0.00 Immature Gran % 1 H 1 H Nucleated RBC % 0 0 PT 9.5 INR 0.9 APTT 25.9 Fibrinogen 525 H Sodium 139 Potassium 3.7 Chloride 107 Carbon Dioxide 20.5 Anion Gap 12 BUN 6 L Creatinine 0.5 L Estim Creat Clear Calc Not Performed. eGFR > 60 BUN/Creatinine Ratio 12 Glucose 82 Calculated Osmolality 274 L Uric Acid 4.9 Calcium 8.8 Corrected Calcium 9.0 Total Bilirubin 0.4 AST 15 ALT 9 L Alkaline Phosphatase 208 H Total Protein 5.7 Albumin 3.8 Globulin 1.9 L Albumin/Globulin Ratio 2.0 Syphilis Serology Nonreactive Blood Type O Positive Antibody Screen NEGATIVE Crossmatch See Detail Blood Bank Wristband ID Yes Assessment & Plan Problem List (1) Supervision of high risk , unspecified, third trimester: Status: Acute Assessment and plan: 1. Continue routine /post-op care 2. Labs reviewed, cbc appropriate drop for postoperative status. Will give IV iron 3. Remove dressing/Mohan 4. Encourage to ambulate, shower 5. Encourage PO intake, breast feeding (2) Maternal care for low transverse scar from previous delivery: Status: Acute Time Spent With Patient Time: Total time spent is greater than 50% in coordination of care (as documented) at patient's floor/unit and/or counseling patient:
[2025-02-17] MEDS: FERRIC SOD GLUC INJ 250 MG in SODIUM CHLORIDE 0.9% 100 ML 120 MG IV (08:59)
[2025-02-17] MEDS: SIMETHICONE 80 MG CHEW PO (15:33)
[2025-02-17] MEDS: LABETALOL 100 MG TABLET 200 MG PO ×2 (15:33→21:26)
[2025-02-17] MEDS: ACETAMINOPHEN 325 MG TABLET 650 MG PO (18:09)
[2025-02-18 04:48] VITALS: BP 137/81; PULSE 75; RESP 16; TEMP 36.9; O2SAT 98
[2025-02-18] MEDS: IBUPROFEN TAB 400 MG TABLET 800 MG PO (05:04)
[2025-02-18 05:05] VITALS: BP 137/81; PULSE 75
[2025-02-18] MEDS: LABETALOL 100 MG TABLET 200 MG PO (05:05)
[2025-02-18] MEDS: SIMETHICONE 80 MG CHEW PO (05:05)
[2025-02-18] MEDS: DOCUSATE SOD 100 MG CAPSULE PO (08:40)
[2025-02-18 08:51] VITALS: BP 118/72; PULSE 81; RESP 16; TEMP 37.5
--- NOTE | 2025-02-18 09:18 | PD.LDPPPRG ---
Subjective Subjective Interval history: The patient is a 34-year-old -0-0-3 postop day #2 status post scheduled elective repeat section with Dr. Banks. Today the patient is ambulating following a general diet she wants to be discharged home. She is requesting some medication because she feels her legs are swollen. No headache shortness of breath or hypertension. She is voiding normally passing flatus and tolerating a general diet. She is reporting her pain is under good control. She denies any heavy bleeding. Exam Vital Signs Temp Pulse Resp BP Pulse Ox O2 Del Method 99.5 F 81 16 118/72 98 Room Air 02/18/25 08:51 02/18/25 08:51 02/18/25 08:51 02/18/25 08:51 02/18/25 04:48 02/18/25 08:51 Narrative Exam Fundus is firm nontender incision is clean dry intact. Johnnie are in place. Extremities show 1-2+ edema. Objective Labs 02/17/25 04:55 02/16/25 10:00 Assessment & Plan Problem List (1) Supervision of high risk , unspecified, third trimester: Status: Acute (2) Maternal care for low transverse scar from previous delivery: Problem details: Patient is doing well. Discharged home postoperative day #2 in stable condition. Discharge instructions include no heavy lifting intercourse tampons or douching for 6 weeks. No strenuous exercise x 6 weeks. Call with fevers heavy vaginal bleeding or severe depression. Follow-up next week to get johnnie out with Dr. Banks Status: Acute Time Spent With Patient Time: Total time spent is greater than 50% in coordination of care (as documented) at patient's floor/unit and/or counseling patient: Time with patient: less than 15 minutes
--- NOTE | 2025-02-18 09:27 | ESDS_ITS ---
DS: Providers Provider Date of admission: 02/16/25 10:08 Primary care physician: Sylvia Key MD Admitting Provider: Gabe Banks MD Attending Provider on Admission: Gabe Banks MD Consults: 02/16/25 14:41 Referral Routine Comment: Attending Provider on DC: Saniya Sanchez MD ([facility]) Discharging Provider: Saniya Sanchez MD ([facility]) Anticipated date of discharge: 02/18/25 DS: Diagnosis Discharge Diagnosis (1) Maternal care for low transverse scar from previous delivery: Status: Acute Assessment & Plan: Discharge home postoperative day #2 in stable condition. Discharge instructions given. (2) care following delivery: Status: Acute Problem List Completed Was Problem List Reviewed/Reconciled?: Yes Summary/Hosp Course Brief History: 34-year-old 3 para 2 at 39 weeks and 1 day presents for scheduled repeat low-transverse Patient has no complaints on presentation including contractions, leakage of fluid or vaginal bleeding and reports adequate movements. She received care at the [facility] clinic. Patient had borderline blood pressures that were managed without medications. All her records were reviewed as scanned in. Please see history and physical for further details. Hospital course: Patient underwent a scheduled elective repeat section by Dr. Banks 03-11. Her postoperative course was uncomplicated. Her predelivery hemoglobin 9.4 postdelivery hemoglobin 8.3. She was discharged home postoperative day #2 in stable condition. Patient was instructed no heavy lifting intercourse tampons or douching or strenuous exercise x 6 weeks. She was to follow-up in clinic in a week to get johnnie out and check blood pressure. Lasix 40 twice daily for 3 days was prescribed for swelling. Peripartum Data Delivery Method: Low Transverse Episiotomy Description: None Procedures: Procedures Operation Date: 02/16/25 12:45 Actual Procedure Side Surgeon p in OB Gabe Banks MD complications: none Status at Discharge Cognitive/behavioral status at discharge: Patient is alert and orient x 3 in no apparent distress Functional status at discharge: independent ambulation Overall status at discharge: patient is progressing back to baseline Time Spent with Patient Time attestation: Total time spent providing and/or coordinating discharge services: Time spent: Less than 30 minutes Specific discharge activities: Pelvic rest x 6 weeks. No strenuous exercise x 6 weeks. No heavy lifting greater than 20 pounds x 6 weeks. Exam Vital Signs Temp Pulse Resp BP Pulse Ox O2 Del Method 99.5 F 81 16 118/72 98 Room Air 02/18/25 08:51 02/18/25 08:51 02/18/25 08:51 02/18/25 08:51 02/18/25 04:48 02/18/25 08:51 Narrative Exam Patient is alert and orient x 3 in no apparent distress. Fundus is firm nontender. Incisions clean dry and intact with johnnie in place. Extremities show 2+ pitting edema. Discharge Plan Plan Patient Disposition: HOME (Self Care) Disposition Comment: Stable Prescriptions/Referrals Prescriptions/Med Rec: New furosemide 40 mg Tablet 40 mg PO BID Qty: 6 0RF acetaminophen 325 mg Tablet 650 mg PO Q6HR PRN (Reason: Patient rated pain of 3) Qty: 30 0RF hydrocodone-acetaminophen 5-325 mg Tablet 2 tab PO Q6HR MDD 4 PRN (Reason: Patient rated pain 9 to 10) Qty: 20 0RF ibuprofen 400 mg Tablet 800 mg PO Q8HR PRN (Reason: Pain Scale 4-6 (Moderate) Qty: 6 0RF docusate sodium 100 mg Capsule 100 mg PO QDAY Qty: 60 0RF labetalol 100 mg Tablet 200 mg PO Q8HR Qty: 60 0RF Continued omeprazole 40 mg capsule,delayed release(DR/EC) 40 mg PO QDAY 30 Days Qty: 30 4RF No Action vitamin no.45-iron-FA 28 mg iron- 1 mg tablet,chewable 1 tab PO QDAY Referrals: Sylvia Key MD [Primary Care Provider, Family Practice] Patient/Caregiver Discharge Instructions Discharge Activity: activity as tolerated Other Discharge Activity Instructions:: No heavy lifting x 6 weeks no strenuous exercise x 6 weeks pelvic rest x 6 weeks Other Discharge Diet Instructions: High iron diet Education Materials: After Delivery [place] Concerns, C Section Dc, Feel Healthy After Print Language: Libyan Stand Alone Forms: Marjorie Award Info., Patient Portal Info Letter Discharge Order Discharge Orders: Discharge (Routine); Ordered 02/18/25 Ordered By: Saniya Sanchez ([facility]) Planned Discharge Date 02/18/25
[2025-02-18 10:27] VITALS: BP 121/80; PULSE 78
[2025-02-18] MEDS: DIPHTH,PERTUSS(ACELL),TET VAC 0.5 ML SYR- ADULT IMi (10:28)
== END 2025-02-18 12:25 | disposition home or self-care (01) | DRG 540 ==
LOC: S4SX 11:04 → S4NX 13:17
PROVIDERS: Admitting Provider Obstetrics & Gynecology; PCP Family Medicine; Visit Provider Obstetrics & Gynecology
PROC: 10D00Z1 Extraction of Products of Conception, Low, Open Approach (ICD-10-PCS; CPT 59514; principal; 2025-02-16 12:30)
DX: O34.211 Maternal care for low transverse scar from previous cesarean delivery (principal); Z37.0 Single live birth; Z3A.39 39 weeks gestation of pregnancy; Z23 Encounter for immunization
CPT/HCPCS: 36415; 59409; 80053; 84550; 85025; 85384; 85610; 85730; 86780; 86850; 86900; 86901; 86923; 90715; 94762; J0131; J0689; J1100; J1885; J2250; J2274; J2405; J2590; J2916; J3490; J7050; A9270; J2270

== ENCOUNTER 2025-03-02 13:54 | Outpatient (AMB) | payer MEDICAID, SELFPAY ==
[2025-03-02 13:56] VITALS: BP 127/85; PULSE 71; RESP 14; TEMP 36.6; O2SAT 98; BMI 26.9
--- NOTE | 2025-03-02 13:56 | AMBOBPPN_ITS ---
Vital Signs 03/02/25 13:56 Height 1.6 m Height Method Stated Weight 68.946 kg Weight Measurement Method Standing Scale BMI 26.9 BP 127/85 H Blood Pressure Source Automatic Cuff Blood Pressure Location Left Upper Arm Position Sitting Respiration 14 Pulse 71 Pulse Source Monitor Temp 98 F Temp Source Oral Pulse Oximetry (%) 98 Oxygen Delivery Method Room Air Allergies/Home Meds Allergies & Medications Allergies No Known Allergies Allergy (Verified 03/13/25 10:18) Medication Reconciliation vitamins no.45-iron-FA 28 mg iron-1 mg chewable tablet 1 tab PO QDAY 12/15/24 [History Confirmed 03/13/25] acetaminophen 325 mg tablet 650 mg (2 x 325 mg) PO Q6HR PRN Patient rated pain of 3 #30 tabs 02/18/25 [Rx Confirmed 03/13/25] Intake Visit Data Collection New Patient or Established: Established Patient (seen at [facility] within 3 years) Reason for Visit:: Seen by Clinical Staff ONLY (RN/MA): No Digital Recruiter Required: No Do You Feel Safe at Home: Yes Authorities Contacted: N/A PCP or OBGYN visit in last 3 months: Yes Hx Now: No Are you currently on any form of Control: No Pain Present Currently: No Pain Scale Used: Florentino-Shanks/Numerical Pain scale:: 0 Smoking Status 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 Past Medical History: No Hx Neurological Disorders, No Hx Cardiac Disorders, No Hx Cancer, Yes Hx Anemia, No Hx Gastrointestinal Disorders, No Hx Renal Disease, No Hx Diabetes Mellitus Type 1 and No Hx Diabetes Mellitus Type 2 Questionnaires Covid-19 Vaccine Questionnaire Has patient been vacinated for Covid-19 Have you been vacinated for Covid-19: Yes Social History Living Situation History Lives With: Family Housing: House Tobacco History Smoking Status: Never smoker Second Hand Smoke Exposure: No Alcohol History Alcohol Intake: Never Domestic Abuse History Do You Feel Safe at Home: Yes EPDS - PP Depression Screening [place] Pospartum Depression Screen I have been able to laugh and see the funny side of things: (0) As much as I always could I have looked forward with enjoyment to things: (0) As much as I ever did I have blamed myself unnecessarily when things went wrong: (0) No, never I have been anxious or worried for no good reason: (0) No, not at all I have felt scared or panicky for no very good reason: (0) No, not at all Things have been getting on top of me: (0) No, I have been coping as well as ever I have been so unhappy that I have had difficulty sleeping: (0) No, not at all I have felt sad or miserable: (0) No, not at all I have been so unhappy that I have been crying: (0) No, never The thought of harming myself has occurred to me: (0) Never Total Score: EPDS Score: Referral is indicated for score of 9 or more, suicidal, or if provider believes patient is depressed regardless of score.: 0 EPDS completed yes HPI Interval History: Prolapse presenting for postoperative visit status post repeat on 02/24/2025 Chronic hypertension, denies any symptoms, denies any incisional complaints. Exam Narrative Physical exam: Incision clean dry and intact, Prineo dressing removed. General General Appearance: alert, in no apparent distress and healthy appearing Head Head exam: atraumatic Neck Neck exam: Present normal inspection and trachea midline Chest Chest inspection: Present normal inspection and symmetric chest wall rise External exam: Present normal external exam; Absent tenderness Neuro Neurological exam: Present oriented X3 Psych Psychiatric exam: Present normal affect and normal mood Office Procedures [facility]BC Clinic LOC & Office Proc's Nursing/Assessment Patient Status: Established Patient [facility] Clinic Nursing Assessment: Medication Reconciliation, Update PMH in EMR and Vital Signs OB Clinic Coordination of Care: Complex Care and Chronic Disease 1-5, Consent,records obtained, informed consent, Education Simp Pt/Fam, 1 Ins Authorization, Lab and Imaging orders, Results/Orders obtained and Staff clarify orders Special Needs: Heart tones Established Patient Charge Established Patient Point Assignment: 150 Established Patient Point Charge: EP Level 4 (120-155) Assessment & Plan Diagnosis / Problem List (1) wound infection: Status: Acute (2) care following delivery: Status: Acute (3) Supervision of high risk , unspecified, third trimester: Status: Acute Plan Index removed. Short course of antibiotics due to foul odor Return again in 1 week for recheck
== END 2025-03-02 14:28 | disposition home or self-care (01) ==
LOC: HODSOBC 13:54
PROVIDERS: Supervising Provider Obstetrics & Gynecology; Visit Provider Obstetrics & Gynecology
DX: Z39.2 Encounter for routine postpartum follow-up (principal); O86.00 Infection of obstetric surgical wound, unspecified; O10.93 Unspecified pre-existing hypertension complicating the puerperium
CPT/HCPCS: 99214; G0463

== ENCOUNTER 2025-03-08 10:27 | Outpatient (AMB) | payer MEDICAID, SELFPAY ==
[2025-03-08 11:00] VITALS: BP 136/88; PULSE 75; RESP 18; TEMP 36.2; O2SAT 98; BMI 26.9
--- NOTE | 2025-03-08 11:00 | AMB.OBPP ---
Vital Signs 03/08/25 11:00 Height 1.6 m Height Method Stated Weight 69.059 kg Weight Measurement Method Standing Scale BMI 26.9 BP 136/88 H Blood Pressure Source Automatic Cuff Blood Pressure Location Left Upper Arm Position Sitting Respiration 18 Pulse 75 Pulse Source Monitor Temp 97.2 F Temp Source Oral Pulse Oximetry (%) 98 Oxygen Delivery Method Room Air Allergies/Home Meds Allergies & Medications Allergies No Known Allergies Allergy (Verified 03/13/25 10:18) Medication Reconciliation vitamins no.45-iron-FA 28 mg iron-1 mg chewable tablet 1 tab PO QDAY 12/15/24 [History Confirmed 03/13/25] acetaminophen 325 mg tablet 650 mg (2 x 325 mg) PO Q6HR PRN Patient rated pain of 3 #30 tabs 02/18/25 [Rx Confirmed 03/13/25] Intake Visit Data Collection New Patient or Established: Established Patient (seen at [facility] within 3 years) Reason for Visit:: Seen by Clinical Staff ONLY (RN/MA): No Brazer Furnace Required: No Do You Feel Safe at Home: Yes Authorities Contacted: N/A PCP or OBGYN visit in last 3 months: Yes Date of Last PCP or OBGYN visit: 03/02/25 Hx Now: No Are you currently on any form of Control: No Pain Present Currently: No Pain Scale Used: Florentino-Shanks/Numerical Pain scale:: 0 Smoking Status Smoking Status: Never smoker Immunizations Flu Vaccine in the Last 12 Months: No Flu Vaccine Exclusion Criteria: No Exclusion Criteria 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: Past Medical History Past Medical History: No Hx Neurological Disorders, No Hx Cardiac Disorders, No Hx Cancer, Yes Hx Anemia, No Hx Gastrointestinal Disorders, No Hx Renal Disease, No Hx Diabetes Mellitus Type 1 and No Hx Diabetes Mellitus Type 2 Questionnaires Covid-19 Vaccine Questionnaire Has patient been vacinated for Covid-19 Have you been vacinated for Covid-19: Yes Social History Living Situation History Marital Status: Single Lives With: Family Housing: House Tobacco History Smoking Status: Never smoker Second Hand Smoke Exposure: No Alcohol History Alcohol Intake: Never Domestic Abuse History Do You Feel Safe at Home: Yes EPDS - PP Depression Screening [place] Pospartum Depression Screen I have been able to laugh and see the funny side of things: (0) As much as I always could I have looked forward with enjoyment to things: (0) As much as I ever did I have blamed myself unnecessarily when things went wrong: (0) No, never I have been anxious or worried for no good reason: (0) No, not at all I have felt scared or panicky for no very good reason: (0) No, not at all Things have been getting on top of me: (0) No, I have been coping as well as ever I have been so unhappy that I have had difficulty sleeping: (0) No, not at all I have felt sad or miserable: (0) No, not at all I have been so unhappy that I have been crying: (0) No, never The thought of harming myself has occurred to me: (0) Never Total Score: EPDS Score: Referral is indicated for score of 9 or more, suicidal, or if provider believes patient is depressed regardless of score.: 0 EPDS completed yes HPI Interval History: Elaine Barragan is a 34-year-old woman with a history of section on February 16, 2025, who presents today for scheduled staple removal and concerns about a loose staple. The patient reports that one of her johnnie has been bothering her and causing pain. She describes drainage of liquid coming from the staple holes and has been placing gauze over the area due to this drainage. The patient states that when the skin is pulled up around the problematic staple, it hernandez and causes significant discomfort. The patient reports that a friend checked her incision yesterday and noted the liquid drainage from the staple holes but was unsure of the source. She has been cleaning the area as previously instructed and continues to use gauze due to the ongoing drainage. The patient indicates that one particular area of her incision is causing more pain than others, describing it as 3-fold more painful and pointing to a specific location on her incision. She has a history of section on February 16, 2025, delivered at 38 weeks and 6 days gestation. The patient has been taking clindamycin antibiotics that were prescribed the previous week. She is currently and expressed concern about whether she would need to discontinue nursing if stronger antibiotics were required. She is a 34-year-old female with an obstetric history of G1 T1 L1. The patient is currently . 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 Exam Narrative Physical exam: - Abdominal: incision site examined. Gravelly present with one loose staple noted. Small amount of liquid drainage observed from staple holes. Mild odor detected at incision site. Signs of mild infection present at incision area. Office Procedures [facility] Clinic LOC & Office Proc's Nursing/Assessment Patient Status: Established Patient OB Clinic Nursing Assessment: Medication Reconciliation, Update PMH in EMR and Vital Signs OB Clinic Coordination of Care: Consent,records obtained, informed consent, Education Simp Pt/Fam, Lab and Imaging orders, Results/Orders obtained and Staff clarify orders Established Patient Charge Established Patient Point Assignment: 80 Established Patient Point Charge: EP Level 3 (80-115) Assessment & Plan Diagnosis / Problem List (1) wound infection: Status: Acute Plan Post- incision site infection: - Signs of incision site infection including drainage from staple holes, pain, and odor noted during examination. - Patient has been on clindamycin prescribed last week but continues to have symptoms. - Physical examination revealed persistent drainage and what appears to be early infection around the staple sites. - The presence of foreign material (johnnie) is likely contributing to the ongoing infection and preventing proper healing. Plan: - Remove all remaining johnnie today. - Discontinue clindamycin. - Start stronger antibiotic that is safe for . - Allow incision to drain naturally without gauze covering to promote drying. - Follow-up appointment in one week. - Reassess healing and response to new antibiotic at follow-up visit.
== END 2025-03-08 11:21 | disposition home or self-care (01) ==
LOC: HODSOBC 10:27
PROVIDERS: Supervising Provider Obstetrics & Gynecology; Visit Provider Obstetrics & Gynecology
DX: Z39.2 Encounter for routine postpartum follow-up (principal); O86.00 Infection of obstetric surgical wound, unspecified
CPT/HCPCS: 99213; G0463

== ENCOUNTER 2025-03-13 09:37 | Outpatient (AMB) | payer MEDICAID, SELFPAY ==
[2025-03-13 10:17] VITALS: BP 144/88; PULSE 53; RESP 18; TEMP 36.4; O2SAT 98; BMI 26.4
--- NOTE | 2025-03-13 10:17 | AMBOBPPN_ITS ---
Vital Signs 03/13/25 10:17 Height 1.6 m Height Method Stated Weight 67.812 kg Weight Measurement Method Standing Scale BMI 26.4 BP 144/88 H Blood Pressure Source Automatic Cuff Blood Pressure Location Right Upper Arm Position Sitting Respiration 18 Pulse 53 L Pulse Source Monitor Temp 97.5 F Temp Source Temporal Artery Scan Pulse Oximetry (%) 98 Oxygen Delivery Method Room Air Allergies/Home Meds Allergies & Medications Allergies No Known Allergies Allergy (Verified 03/13/25 10:18) Medication Reconciliation vitamins no.45-iron-FA 28 mg iron-1 mg chewable tablet 1 tab PO QDAY 12/15/24 [History Confirmed 03/13/25] acetaminophen 325 mg tablet 650 mg (2 x 325 mg) PO Q6HR PRN Patient rated pain of 3 #30 tabs 02/18/25 [Rx Confirmed 03/13/25] amoxicillin 875 mg-potassium clavulanate 125 mg tablet 1 tab PO BID 7 days #14 tabs 03/08/25 [Rx Confirmed 03/13/25] Intake Visit Data Collection New Patient or Established: Established Patient (seen at [facility] within 3 years) Reason for Visit:: STAPLE REMOVAL Seen by Clinical Staff ONLY (RN/MA): No 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 Do You Feel Safe at Home: Yes Authorities Contacted: N/A PCP or OBGYN visit in last 3 months: Yes Date of Last PCP or OBGYN visit: 03/08/25 Hx Now: No Are you currently on any form of Control: No Pain Present Currently: No Pain Scale Used: Florentino-Shanks/Numerical Pain scale:: 0 Smoking Status Smoking Status: Never smoker Immunizations Flu Vaccine in the Last 12 Months: Yes Flu Vaccine Exclusion Criteria: Already Received 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: Past Medical History Past Medical History: No Hx Neurological Disorders, No Hx Cardiac Disorders, No Hx Cancer, Yes Hx Anemia, No Hx Gastrointestinal Disorders, No Hx Renal Disease, No Hx Diabetes Mellitus Type 1 and No Hx Diabetes Mellitus Type 2 Questionnaires Covid-19 Vaccine Questionnaire Has patient been vacinated for Covid-19 Have you been vacinated for Covid-19: No Social History Living Situation History Marital Status: Lives With: Family Housing: House Tobacco History Smoking Status: Never smoker Second Hand Smoke Exposure: No Alcohol History Alcohol Intake: Never Domestic Abuse History Do You Feel Safe at Home: Yes EPDS - PP Depression Screening [place] Pospartum Depression Screen I have been able to laugh and see the funny side of things: (0) As much as I always could I have looked forward with enjoyment to things: (0) As much as I ever did I have blamed myself unnecessarily when things went wrong: (0) No, never I have been anxious or worried for no good reason: (0) No, not at all I have felt scared or panicky for no very good reason: (0) No, not at all Things have been getting on top of me: (0) No, I have been coping as well as ever I have been so unhappy that I have had difficulty sleeping: (0) No, not at all I have felt sad or miserable: (0) No, not at all I have been so unhappy that I have been crying: (0) No, never The thought of harming myself has occurred to me: (0) Never EPDS completed yes HPI Interval History: Elaine Barragan presents for follow-up with staple removal and concerns about elevated blood pressure. She reports feeling better since starting new antibiotics. The patient has one remaining staple that is causing pain, while the surgical site appears to be healing well. She expresses concern about being an inmate at the hospital and inquires about her blood pressure, which was measured at 144 today. The patient reports that her baby is doing well. She has a history of recent section with staple removal during current visit. The patient has been taking antibiotics and reports feeling better with the new ones. She recently delivered a female infant and is currently with staple removal and wound healing in progress. ROS: Musculoskeletal: Positive for pain at staple site. Negative except as stated above, limited to 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 and pertinent complaints. Exam General General Appearance: alert, in no apparent distress and healthy appearing Head Head exam: atraumatic Neck Neck exam: Present normal inspection and trachea midline Chest Chest inspection: Present normal inspection and symmetric chest wall rise External exam: Present normal external exam; Absent tenderness Neuro Neurological exam: Present oriented X3 Psych Psychiatric exam: Present normal affect and normal mood Office Procedures [facility] Clinic LOC & Office Proc's Nursing/Assessment Patient Status: Established Patient OB Clinic Nursing Assessment: Medication Reconciliation, Update PMH in EMR and Vital Signs OB Clinic Coordination of Care: Complex Care and Chronic Disease 1-5, Education Complex Pt/Fam, Consent,records obtained, informed consent, Results/Orders obtained and Staff clarify orders Miscellaneous Interventions: Staple/Suture Removal Established Patient Charge Established Patient Point Assignment: 110 Established Patient Point Charge: EP Level 3 (80-115) Antepartum Initial or Follow-up Antepartum Follow up Visit: Yes Assessment & Plan Diagnosis / Problem List (1) wound infection: Status: Acute (2) care following delivery: Status: Acute Plan staple removal: - Patient presented for removal of surgical jhonnie following delivery. - One remaining staple was causing discomfort. - Incision site appears to be healing appropriately and closing up well. Plan: - Staple removal completed. - Follow-up in one month. Elevated blood pressure : - Elevated blood pressure reading of 144 mmHg systolic. - Elevation likely multifactorial, related to combination of status, pain, and medications. - Blood pressure does not meet threshold for antihypertensive treatment (160/110 mmHg). Plan: - Monitor blood pressure, no medication needed at current reading of 144 mmHg. - Will prescribe antihypertensive medication if blood pressure exceeds 160/110 mmHg. - Reassess blood pressure at follow-up visit in one month. - If blood pressure remains elevated at 6-week herman, will initiate medication. laboratory monitoring: - Routine laboratory monitoring indicated. Plan: - Order CBC. - Follow-up in one month.
== END 2025-03-13 11:02 | disposition home or self-care (01) ==
LOC: HODSOBC 09:37
PROVIDERS: Supervising Provider Obstetrics & Gynecology; Visit Provider Obstetrics & Gynecology
DX: Z39.2 Encounter for routine postpartum follow-up (principal); O86.00 Infection of obstetric surgical wound, unspecified; O90.89 Other complications of the puerperium, not elsewhere classified; R03.0 Elevated blood-pressure reading, without diagnosis of hypertension
CPT/HCPCS: 99213; Z1034; G0463

== ENCOUNTER 2025-03-14 13:06 | Outpatient (AMBR) | payer MEDICAID, SELFPAY ==
--- NOTE | 2025-03-14 16:24 | LAC.VISIT ---
Assessment LAC Breast Assessment Breast Assessment Bilateral: Breast Assessment Comment: mom has medium sized breasts and large nipples, she has breastfed previous 2 children and has had no issues. LAC Pain Pain Bilateral Nipple: Pain Intensity: Mild (1-3) Character of Pain: Pulling and Sharp Pain Comment: both nipples have tissue damage, and are red and tender Alternative Milk Expression Alternative Milk Expression Alternative Method Used: No Alternative Method Comment: Production ounces or mls: mls LAC Assessment Breast Feeding Assessment Date of : 02/16/25 Current Age of baby: 24 (days) Weight: 2863.302 g Current weight of baby: 3807.341 g [place] # of Stool voids in last 24 hrs: 6 Stool Size: Medium Color of Stools: yellow # of Urine voids in last 24 hrs: 6 Color of Urine: clear to light yellow Breast Feeding Ability: Fair Complications Comment: baby appears to have lip and tongue tie, will be doing a referral for consult [place] Activity Level: Sleepy Muscle Tone: With In Normal Limits Suck Quality: Areolar Compression and Rhythmic Effective Suck: Yes Swallow: Observed [place] Jaw: Clentched [place] Lip Seal: Excess Suction, Chomping and Tight Lips Feeding Posistion: Cross Cradle Additional Latch or Posistion Assistance Needed: Minimal Breast Feeding Comment: mom has experience but with this baby she has had more pain and feels like she is feeding all the time. baby will feed for 10 minutes or less then fall asleep and wake up 20-30 minutes later to feed again. she doesn't stay high on the areola but slips off and clamps down on moms nipple. LAC Intervention Interventions Tools: Nipple Shield Other Tools: mom has good milk supply, the nipple shield helped immensly, mom stated a lot less pain. Nipple Shield Size: Medium Techniques Discussed: Latch and Pumping Intervention Comments: explained nipple shield and using until ties could be corrected to save nipples Discharge Follow Up Appointment Date and Time: 1 week Other Referral Made: Yes Feeding Preference at Discharge: Exclusive LAC Latch Score LATCH Score Latch: Grasps Breast, Rythmic Suck Audible Swallow: Spontaneous, Intermittent, Frequent Nipple Type: Everted After Stimulation Comfort: Red, Small Blisters, Bruises Hold: No Assistance Needed Total Score: 9 LAC [place] Oral Assessment Oral Assessment Prenulum Level: Anterior Lip: Tight Upper Lip Palate: High Oral Assessment Comment: tongue tie and lip tie Dental Referral made: Yes (resource list given) OP DC Assessment Discharge Follow Up Appointment Date and Time: 1 week Other Referral Made: Yes Visit Complete?: Yes
== END 2025-03-17 23:59 | disposition home or self-care (01) ==
LOC: HODLAC 13:06
DX: Z39.1 Encounter for care and examination of lactating mother (principal)

== ENCOUNTER 2025-04-18 14:14 | Outpatient (AMB) | payer MEDICAID, SELFPAY ==
[2025-04-18 14:37] VITALS: BP 130/84; PULSE 68; RESP 14; TEMP 36.6; O2SAT 98; BMI 26.2
--- NOTE | 2025-04-18 14:37 | AMB.GYNCLNOT ---
Vital Signs 04/18/25 14:37 Height 1.6 m Height Method Stated Weight 67.132 kg Weight Measurement Method Standing Scale BMI 26.2 BP 130/84 Blood Pressure Source Automatic Cuff Blood Pressure Location Left Upper Arm Position Sitting Respiration 14 Pulse 68 Pulse Source Monitor Temp 97.8 F Temp Source Oral Pulse Oximetry (%) 98 Oxygen Delivery Method Room Air Allergies/Home Meds Allergies & Medications Allergies No Known Allergies Allergy (Verified 04/18/25 14:38) Medication Reconciliation vitamins no.45-iron-FA 28 mg iron-1 mg chewable tablet 1 tab PO QDAY 12/15/24 [History Confirmed 04/18/25] acetaminophen 325 mg tablet 650 mg (2 x 325 mg) PO Q6HR PRN Patient rated pain of 3 #30 tabs 02/18/25 [Rx Confirmed 04/18/25] Intake Visit Data Collection New Patient or Established: Established Patient (seen at [facility] within 3 years) Reason for Visit:: DISCUSS LAB RESULTS Seen by Clinical Staff ONLY (RN/MA): No Hand Mica Plate Layer Required: No Do You Feel Safe at Home: Yes Authorities Contacted: N/A PCP or OBGYN visit in last 3 months: Yes Hx Now: No Are you currently on any form of Control: No Pain Present Currently: No Pain Scale Used: Florentino-Shanks/Numerical Pain scale:: 0 Smoking Status Smoking Status: Never smoker Immunizations Flu Vaccine in the Last 12 Months: Yes Flu Vaccine Exclusion Criteria: Already 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 Menstrual regularity: regular Flow: normal Monthly: Yes How many days does period last: 7 Age at menarche: 13 Currently sexually active: No If not currently sexually active, have you ever been sexually active: Yes 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 1. Little interest or pleasure in doing things: not at all 2. Feeling down, depressed, or hopeless: not at all Total score: 0 PHQ-9 3. Trouble falling or staying asleep, or sleeping too much: Not at all 4. Feeling tired or having little energy: Not at all 5. Poor appetite or overeating: Not at all 6. Feeling bad about yourself - or that you are a failure or have let yourself or your family down: Not at all 7. Trouble concentrating on things, such as reading the newspaper or watching television: Not at all 8. Moving or speaking so slowly that other people could have noticed? - Or the opposite - being so fidgety or restless that you have been moving around a lot more than usual: not at all 9. Thoughts that you would be better off or of hurting yourself in some way: Not at all Total score: 0 Source: Developed by Drs. Sai Quezada, Sara Aguirre, Jem Beltran and colleagues, with an educational lenard from [employer]. Depression screen completed yes Social History Living Situation History Lives With: Family Housing: House Tobacco History Smoking Status: Never smoker Second Hand Smoke Exposure: No Alcohol History Alcohol Intake: Never Domestic Abuse History Do You Feel Safe at Home: Yes History of Present Illness HPI Narrative Elaine Barragan presents for postoperative/ visit following repeat section performed on February 16, 2025. She has experienced elevated blood pressure, with today's reading of 130/84, and is currently not on any antihypertensive medication. She has a history of repeat section in February 2025. The patient is currently . The patient has been taking Deltasone. She is a 39-year-old female. The patient is currently following repeat delivery in February 2025. 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 Exam General General Appearance: alert, in no apparent distress and healthy appearing Head Head exam: atraumatic Neck Neck exam: Present normal inspection and trachea midline Chest Chest inspection: Present normal inspection and symmetric chest wall rise External exam: Present normal external exam; Absent tenderness Neuro Neurological exam: Present oriented X3 Psych Psychiatric exam: Present normal affect and normal mood Office Procedures [facility] LOC & Office Proc's Nursing/Assessment Patient Status: Established Patient OB Clinic Nursing Assessment: Medication Reconciliation, Update PMH in EMR and Vital Signs OB Clinic Coordination of Care: Complex Care and Chronic Disease 1-5, Consent,records obtained, informed consent, Education Simp Pt/Fam, Lab and Imaging orders, Results/Orders obtained and Staff clarify orders Established Patient Charge Established Patient Point Assignment: 105 Established Patient Point Charge: EP Level 3 (80-115) Assessment & Plan Diagnosis / Problem List (1) wound infection: Status: Acute (2) care following delivery: Status: Acute Plan Hypertension: - Elevated blood pressure with current reading of 130/84 mmHg. - Patient not currently on antihypertensive medication. Plan: - Monitor blood pressure trends at follow-up visits. Postoperative Section Status: - Patient underwent repeat section in February 2025. - Presenting for routine postoperative follow-up. Plan: - Continue routine postoperative monitoring. Anemia: - Hemoglobin level of 12.7 g/dL obtained on April 11, 2025. Plan: - Deltasone ordered for treatment.
== END 2025-04-18 15:05 | disposition home or self-care (01) ==
LOC: HODSOBC 14:14
PROVIDERS: Supervising Provider Obstetrics & Gynecology; Visit Provider Obstetrics & Gynecology
DX: O86.00 Infection of obstetric surgical wound, unspecified (principal); O16.5 Unspecified maternal hypertension, complicating the puerperium; D64.9 Anemia, unspecified
CPT/HCPCS: 99213; G0463